=== PATIENT | female | born 1965 | race Caucasian/White ===

== ENCOUNTER 2021-04-01 01:58 | Emergency (ER) | payer BC ==
[2021-04-01] MEDS ORDERED: solu-MEDROL 125 MG, Sterile H2O 10 ml 2 ML IV ONE ×2 (02:08)
[2021-04-01] MEDS ORDERED: BENADRYL 50 MG/ML IV ONE (02:08)
[2021-04-01] MEDS ORDERED: Pepcid 20 MG VIAL IV ONE ×2 (02:08→02:28)
--- NOTE | 2021-04-01 02:18 | ERPHSYRPT ---
- History of Present Illness Time Seen by Provider: 04/01/21 02:00 Source: patient Exam Limitations: no limitations Physician History: Patient is a 56-year-old female presents to our ED with complaints of a pruritic rash. Patient states the rash awoke her from her sleep. Patient is currently on Bactrim for urinary tract infection. Patient started the Bactrim on 24 March. Patient states she has no known drug allergies. Patient describes her rash as itchy and burning. No associated shortness of breath. No intraoral lesions. Patient breathing comfortably. Symptoms are mild to moderate in intensity. No specific worsening or improving factors. Patient voices no other complaints or concerns at this time. Timing/Duration: today Severity: moderate Modifying Factors: Improves With: nothing Associated Symptoms: denies symptoms, No fever Allergies/Adverse Reactions: Sulfa (Sulfonamide Antibiotics) Allergy (Intermediate, Verified 04/01/21 02:08) Rash Home Medications: P-Ephed HCl/Acetaminophen/Cp [Allergy Sinus Gelcap] 1 ea PO DAILY 06/16/16 [History] Hx Tetanus, Diphtheria Vaccination/Date Given: Yes (unk) Hx Influenza Vaccination/Date Given: No Hx Pneumococcal Vaccination/Date Given: No - Review of Systems Constitutional: No Symptoms, No Fever, No Chills Eyes: No Symptoms Ears, Nose, & Throat: No Symptoms Respiratory: No Symptoms, No Cough, No Dyspnea Cardiac: No Symptoms, No Chest Pain, No Edema, No Syncope Abdominal/Gastrointestinal: No Symptoms, No Abdominal Pain, No Nausea, No Vomiting, No Diarrhea Genitourinary Symptoms: No Symptoms, No Dysuria Musculoskeletal: No Symptoms, No Back Pain, No Neck Pain Skin: No Symptoms, No Rash Neurological: No Symptoms, No Dizziness, No Focal Weakness, No Sensory Changes Psychological: No Symptoms Endocrine: No Symptoms Hematologic/Lymphatic: No Symptoms Immunological/Allergic: No Symptoms All Other Systems: Reviewed and Negative - Past Medical History Pertinent Past Medical History: Yes Neurological History: No Pertinent History ENT History: No Pertinent History Cardiac History: Hypertension Respiratory History: No Pertinent History Endocrine Medical History: No Pertinent History Musculoskeletal History: No Pertinent History GI Medical History: No Pertinent History History: No Pertinent History Psycho-Social History: Anxiety Female Reproductive Disorders: No Pertinent History - Past Surgical History Past Surgical History: Yes Neuro Surgical History: No Pertinent History Cardiac: No Pertinent History Respiratory: No Pertinent History Gastrointestinal: No Pertinent History Genitourinary: No Pertinent History Musculoskeletal: No Pertinent History Female Surgical History: Tubal Ligation - Social History Smoking Status: Never smoker Exposure to second hand smoke: Yes Drug Use: none Patient Lives Alone: No - Nursing Vital Signs Nursing Vital Signs: Initial Vital Signs Temperature 97.9 F 04/01/21 01:59 Pulse Rate 89 04/01/21 01:59 Respiratory Rate 18 04/01/21 01:59 Blood Pressure 162/88 04/01/21 01:59 O2 Sat by Pulse Oximetry 99 04/01/21 01:59 Pain Scale Pain Intensity 0 - Physical Exam General Appearance: no apparent distress, alert Eye Exam: PERRL/EOMI, eyes nml inspection Ears, Nose, Throat Exam: normal ENT inspection, TMs normal, pharynx normal, moist mucous membranes Neck Exam: normal inspection, non-tender, supple, full range of motion Respiratory Exam: normal breath sounds, lungs clear, airway intact, No respiratory distress Cardiovascular Exam: regular rate/rhythm, normal heart sounds, normal peripheral pulses Gastrointestinal/Abdomen Exam: soft, normal bowel sounds, No tenderness, No mass, No guarding Back Exam: normal inspection, normal range of motion, No CVA tenderness, No vertebral tenderness Extremity Exam: normal inspection, normal range of motion, pelvis stable Neurologic Exam: alert, oriented x 3, cooperative, normal mood/affect, nml cerebellar function, nml station & gait, sensation nml, No motor deficits Skin Exam: normal color, warm, dry, rash Lymphatic Exam: No adenopathy SpO2 Interpretation: normal SpO2: 99 O2 Delivery: Room Air - Course Nursing assessment & vital signs reviewed: Yes Ordered Tests: Active Orders 24 hr Category Date Time Status IV Insertion STAT Care 04/01/21 02:08 Active Pulse Oximetry (ED) STAT Care 04/01/21 02:08 Active Medication Summary Discontinued Medications Generic Name Dose Route Start Last Admin Trade Name Freq PRN Reason Stop Dose Admin Methylprednisolone Sodium 0 mg 04/01/21 02:08 04/01/21 02:40 Succinate 125 mg/ Sterile IV 04/01/21 02:09 125 mg Water 2 ml STAT ONE Administration Diphenhydramine HCl 25 mg 04/01/21 02:08 04/01/21 02:41 Benadryl 50 Mg/Ml IV 04/01/21 02:09 25 mg STAT ONE Administration Diphenhydramine HCl Confirm 04/01/21 02:28 Benadryl 50 Mg/Ml Administered 04/01/21 02:29 Dose 50 mg .ROUTE .STK-MED ONE Famotidine 20 mg 04/01/21 02:08 04/01/21 02:41 Pepcid 20 Mg Vial IV 04/01/21 02:09 20 mg STAT ONE Administration Famotidine Confirm 04/01/21 02:28 Pepcid 20 Mg Vial Administered 04/01/21 02:29 Dose 20 mg IV .STK-MED ONE Methylprednisolone Sodium Succinate Confirm 04/01/21 02:29 Solu-Medrol Administered 04/01/21 02:30 Dose 125 mg .ROUTE .STK-MED ONE Sterile Water Confirm 04/01/21 02:29 Sterile H2o 10 Ml Administered 04/01/21 02:30 Dose 10 ml IJ .STK-MED ONE - Progress Progress: improved Progress Note: Patient reassessed. She feels much better. Rash is clearing up at this point. Patient feels she is ready for discharge. Vitals stable. Lungs clear. We updated patient's allergy profile to include sulfa/Bactrim. A prescription for EpiPen, steroid and Pepcid was forwarded to patient's pharmacy. Patient has Benadryl at home that she can take as needed for itching. Patient states she does not have a primary care doctor. Our on-call doctor today is Dr. Hicks. Patient referred to for a reevaluation. Patient agrees to follow-up within 48 hours for reevaluation. If symptoms recur or worsen patient agrees to return to our ED. Portions of this note were created with voice recognition technology. There may be grammatical, spelling, punctuation or sound alike errors 04/01/21 03:29 Counseled pt/family regarding: diagnosis, need for follow-up - Departure Departure Disposition: Home Clinical Impression: Allergic reaction caused by a drug, Pruritic rash Condition: Stable Critical Care Time: No Referrals: DOCTOR,NO FAMILY [Primary Care Provider] - WOO HICKS MD [ACTIVE STAFF] - Additional Instructions: Discharge/Care Plan DOMNABIL PATEL was seen on 04/01/21 in the Emergency Room. The patient was counseled regarding Diagnosis,Lab results, Imaging studies, need for follow up and when to return to the Emergency Room. Prescriptions given: Discharge Note I have spoken with the patient and/or caregivers. I have explained the patient's condition, diagnosis and treatment plan based on the information available to me at this time. I have answered the patient's and/or caregiver's questions and addressed any concerns. The patient and/or caregivers have as good understanding of the patient's diagnosis, condition and treatment plan as can be expected at this point. The vital signs have been stable. The patient's condition is stable and appropriate for discharge from the emergency department. The patient will pursue further outpatient evaluation with the primary care physician or other designated or consulting physician as outlined in the discharge instructions. The patient and/or caregivers are agreeable to this plan of care and follow-up instructions have been explained in detail. The patient and/or caregivers have received these instruction. The patient/and or caregivers are aware that any significant change in condition or worsening of symptoms should prompt an immediate return to this or the closest emergency department or call 911. Prescriptions: Prednisone 10 mg [Deltasone 10 mg] 40 mg PO DAILY 3 Days #12 tablet Epinephrine [Epipen] 0.3 mg IM DAILY 1 Days #2 dose Famotidine 20 mg [Pepcid 20 MG] 20 mg PO BID 7 Days #14 tablet
[2021-04-01] MEDS ORDERED: BENADRYL 50 MG/ML ONE (02:28)
[2021-04-01] MEDS ORDERED: solu-MEDROL ONE (02:29)
[2021-04-01] MEDS ORDERED: Sterile H2O 10 ml IJ ONE (02:29)
[2021-04-01 04:10] VITALS: BP 146/72; PULSE 88; O2SAT 98
== END 2021-04-01 04:10 | disposition home or self-care (01) ==
LOC: ED 01:58
DX: L29.8 Other pruritus (principal); T36.8X5A Adverse effect of other systemic antibiotics, initial encounter
CPT/HCPCS: 36000; 94760; 96374; 96375; 99284; J1200; J2930

== ENCOUNTER 2021-04-23 14:00 | Emergency (ER) | payer BC ==
--- NOTE | 2021-04-23 14:10 | ERPHSYRPT ---
- History of Present Illness Time Seen by Provider: 04/23/21 14:10 Source: patient Exam Limitations: no limitations Physician History: This is a 56-year-old white female who has a history of hypertension anxiety and seasonal allergies and is only taking loratadine and a multivitamin and presents with 1 month history of weakness and decreased appetite. Patient states she has to force herself to eat or drink. Patient does not have a primary care physician. Patient denies chest pain. She has no abdominal pain. She has no shortness of breath. She denies fevers or chills. She does not have a cough. She has not been passing blood either vaginally, via urine, or bloody stools. It is unclear to her why she feels weak and unable to eat or drink normally. She denies any new medications. She has never had anything like this in the past. Timing/Duration: week(s) (4) Severity: mild Associated Symptoms: loss of appetite, malaise, weakness, No nausea, No vomiting, No abdominal pain, No shortness of breath, No cough, No chest pain, No fever Allergies/Adverse Reactions: Sulfa (Sulfonamide Antibiotics) Allergy (Intermediate, Verified 04/01/21 02:08) Rash Home Medications: Loratadine 10 mg [Claritin 10 mg] 10 mg PO DAILY 04/23/21 [History] Multivitamin 1 each PO DAILY 04/23/21 [History] Hx Tetanus, Diphtheria Vaccination/Date Given: Yes (unk) Hx Influenza Vaccination/Date Given: No Hx Pneumococcal Vaccination/Date Given: No Travel Risk - International Travel Have you traveled outside of the country in past 3 weeks: No - Coronavirus Screening Are you exhibiting any of the following symptoms?: No Close contact with a COVID-19 positive Pt in past 14-21 Days: No - Vaccine Status Have you recieved a Covid-19 vaccination: Yes 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: [facility] - Vaccination Dates Date of 2cond Vaccination (if applicable): 11/18/20 - Review of Systems Constitutional: Weakness Eyes: No Symptoms Ears, Nose, & Throat: No Symptoms Respiratory: No Symptoms Cardiac: No Symptoms Abdominal/Gastrointestinal: Appetite Changes, No Abdominal Pain, No Nausea, No Vomiting, No Diarrhea Genitourinary Symptoms: No Symptoms Musculoskeletal: No Symptoms Skin: No Symptoms Neurological: No Symptoms Psychological: No Symptoms Endocrine: No Symptoms Hematologic/Lymphatic: No Symptoms Immunological/Allergic: No Symptoms All Other Systems: Reviewed and Negative - Past Medical History Pertinent Past Medical History: Yes Neurological History: No Pertinent History ENT History: No Pertinent History Cardiac History: Hypertension Respiratory History: No Pertinent History Endocrine Medical History: No Pertinent History Musculoskeletal History: No Pertinent History GI Medical History: No Pertinent History History: No Pertinent History Psycho-Social History: Anxiety Female Reproductive Disorders: No Pertinent History - Past Surgical History Past Surgical History: Yes Neuro Surgical History: No Pertinent History Cardiac: No Pertinent History Respiratory: No Pertinent History Gastrointestinal: No Pertinent History Genitourinary: No Pertinent History Musculoskeletal: No Pertinent History Female Surgical History: Tubal Ligation - Social History Smoking Status: Never smoker Exposure to second hand smoke: Yes Drug Use: none Patient Lives Alone: No - Nursing Vital Signs Nursing Vital Signs: Initial Vital Signs Temperature 98.9 F 04/23/21 14:09 Pulse Rate 101 H 04/23/21 14:09 Respiratory Rate 18 04/23/21 14:09 Blood Pressure 144/66 04/23/21 14:09 O2 Sat by Pulse Oximetry 98 04/23/21 14:09 Pain Scale Pain Intensity 3 - Physical Exam General Appearance: no apparent distress, alert, anxiety Eye Exam: PERRL/EOMI, eyes nml inspection Ears, Nose, Throat Exam: normal ENT inspection, moist mucous membranes Neck Exam: normal inspection, non-tender, supple, full range of motion Respiratory Exam: normal breath sounds, lungs clear, airway intact, No chest tenderness, No respiratory distress Cardiovascular Exam: regular rate/rhythm, normal heart sounds, normal peripheral pulses Gastrointestinal/Abdomen Exam: soft, normal bowel sounds, No tenderness Pelvic Exam: not done Rectal Exam: not done Back Exam: normal inspection, normal range of motion, No CVA tenderness, No vertebral tenderness Extremity Exam: normal inspection, normal range of motion, pelvis stable Neurologic Exam: alert, oriented x 3, cooperative, 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 II-XII 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 tested, normal mood/affect, nml cerebellar function, nml station & gait, sensation nml Skin Exam: normal color, warm, dry Lymphatic Exam: No adenopathy SpO2 Interpretation: normal O2 Delivery: Room Air - Course Nursing assessment & vital signs reviewed: Yes Ordered Tests: Active Orders 24 hr Category Date Time Status Clean Catch Urine Specimen STAT Care 04/23/21 14:30 Active EKG-ER Only STAT Care 04/23/21 14:30 Active IV Insertion STAT Care 04/23/21 14:30 Active AMYLASE Stat Lab 04/23/21 14:27 Completed CBC W DIFF Stat Lab 04/23/21 14:27 Completed CMP Stat Lab 04/23/21 14:27 Completed CULTURE,URINE Stat Lab 04/23/21 15:11 Received LIPASE Stat Lab 04/23/21 14:27 Completed Lactic Acid Stat Lab 04/23/21 14:30 Completed MAGNESIUM Stat Lab 04/23/21 14:27 Completed T4 (Thyroxine) Stat Lab 04/23/21 14:27 Completed TROPONIN Q3H Lab 04/23/21 14:27 Completed TROPONIN Q3H Lab 04/23/21 17:45 Ordered TROPONIN Q3H Lab 04/23/21 20:45 Ordered TROPONIN Q3H Lab 04/23/21 23:45 Ordered TROPONIN Q3H Lab 04/24/21 02:45 Ordered TSH, 3RD Generation Stat Lab 04/23/21 14:27 Completed UA W/RFX UR CULTURE Stat Lab 04/23/21 15:11 Completed Urine Triage Profile Stat Lab 04/23/21 15:11 Completed Medication Summary Discontinued Medications Generic Name Dose Route Start Last Admin Trade Name Freq PRN Reason Stop Dose Admin Sodium Chloride 1,000 mls @ 999 mls/hr 04/23/21 14:30 04/23/21 15:52 Sodium Chloride 0.9% 1000 Ml IV 04/23/21 15:30 Infused .Q1H1M STA Infusion Sodium Chloride Confirm 04/23/21 14:34 Sodium Chloride 0.9% 1000 Ml Administered 04/23/21 14:35 Dose 1,000 mls @ ud .ROUTE .STK-MED ONE Ceftriaxone Sodium/Dextrose 1 g in 50 mls @ 100 mls/hr 04/23/21 15:38 04/23/21 15:48 Rocephin 1 Gm-D5w 50 Ml Bag IV 04/23/21 16:07 100 mls/hr STAT STA 100 mls/hr Administration Ceftriaxone Sodium/Dextrose Confirm 04/23/21 15:45 Rocephin 1 Gm-D5w 50 Ml Bag Administered 04/23/21 15:46 Dose 1 g in 50 mls @ ud IV .STK-MED ONE Lab/Rad Data: Laboratory Result Diagrams 04/23/21 14:27 04/23/21 14:27 Laboratory Results 04/23/21 04/23/21 04/23/21 Range/Units 15:11 15:11 14:30 WBC (4.0-10.5) K/mm3 RBC (4.1-5.4) M/mm3 Hgb (12.0-16.0) gm/dl Hct (35-47) % MCV (78-100) fl MCH (26-32) pg MCHC (32-36) g/dl RDW (11.5-14.0) % Plt Count (150-450) K/mm3 MPV (7.5-11.0) fl Gran % (36.0-66.0) % Eos # (Auto) (0-0.5) Absolute Lymphs (auto) (1.0-4.6) Absolute Monos (auto) (0.0-1.3) Lymphocytes % (24.0-44.0) % Monocytes % (0.0-12.0) % Eosinophils % (0.00-5.0) % Basophils % (0.0-0.4) % Absolute Granulocytes (1.4-6.9) Basophils # (0-0.4) Sodium (137-145) mmol/L Potassium (3.5-5.1) mmol/L Chloride (98-107) mmol/L Carbon Dioxide (22-30) mmol/L Anion Gap (5-15) MEQ/L BUN (7-17) mg/dL Creatinine (0.52-1.04) mg/dL Estimated GFR ML/MIN Glucose (74-106) mg/dL Lactic Acid 1.5 (0.4-2.0) Calcium (8.4-10.2) mg/dL Magnesium (1.6-2.3) mg/dL Total Bilirubin (0.2-1.3) mg/dL AST (14-36) U/L ALT (0-35) U/L Alkaline Phosphatase (38-126) U/L Troponin I (0.000-0.034) ng/mL Serum Total Protein (6.3-8.2) g/dL Albumin (3.5-5.0) g/dL Amylase (30-110) U/L Lipase (23-300) U/L Thyroxine (T4) (5.53-10.96) ug/dL TSH 3rd Generation (0.47-4.68) mIU/L Urine Color YELLOW (YELLOW) Urine Appearance TURBID (CLEAR) Urine pH 6.0 (5-6) Ur Specific [place] 1.017 (1.005-1.025) Urine Protein 100 (Negative) Urine Ketones NEGATIVE (NEGATIVE) Urine Blood SMALL (0-5) Ricardo/ul Urine Nitrite POSITIVE (NEGATIVE) Urine Bilirubin NEGATIVE (NEGATIVE) Urine Urobilinogen 2 (0-1) mg/dL Ur Leukocyte Esterase MODERATE (NEGATIVE) Urine WBC (Auto) >100 (0-5) /HPF Urine RBC (Auto) 16-25 (0-2) /HPF U Epithel Cells (Auto) RARE (FEW) /HPF Urine Bacteria (Auto) MANY (NEGATIVE) /HPF Urine Mucus (Auto) MANY (NEGATIVE) /HPF Urine Culture Reflexed YES (NO) Urine Glucose NEGATIVE (NEGATIVE) mg/dL Urine Opiates Level NEGATIVE (NEGATIVE) Ur Methadone NEGATIVE (NEGATIVE) Urine Barbiturates NEGATIVE (NEGATIVE) Ur Phencyclidine (PCP) NEGATIVE (NEGATIVE) Urine Amphetamine NEGATIVE (NEGATIVE) U Benzodiazepine Level NEGATIVE (NEGATIVE) Urine Cocaine NEGATIVE (NEGATIVE) Urine Marijuana (THC) NEGATIVE (NEGATIVE) 04/23/21 04/23/21 04/23/21 Range/Units 14:27 14:27 14:27 WBC 11.1 H (4.0-10.5) K/mm3 RBC 4.36 (4.1-5.4) M/mm3 Hgb 13.1 (12.0-16.0) gm/dl Hct 39.0 (35-47) % MCV 89.4 (78-100) fl MCH 30.0 (26-32) pg MCHC 33.6 (32-36) g/dl RDW 13.1 (11.5-14.0) % Plt Count 178 (150-450) K/mm3 MPV 9.9 (7.5-11.0) fl Gran % 72.8 H (36.0-66.0) % Eos # (Auto) 0.03 (0-0.5) Absolute Lymphs (auto) 1.66 (1.0-4.6) Absolute Monos (auto) 1.33 H (0.0-1.3) Lymphocytes % 14.9 L (24.0-44.0) % Monocytes % 11.9 (0.0-12.0) % Eosinophils % 0.3 (0.00-5.0) % Basophils % 0.1 (0.0-0.4) % Absolute Granulocytes 8.11 H (1.4-6.9) Basophils # 0.01 (0-0.4) Sodium 134 L (137-145) mmol/L Potassium 3.5 (3.5-5.1) mmol/L Chloride 100 (98-107) mmol/L Carbon Dioxide 25 (22-30) mmol/L Anion Gap 13.0 (5-15) MEQ/L BUN 17 (7-17) mg/dL Creatinine 0.85 (0.52-1.04) mg/dL Estimated GFR > 60.0 ML/MIN Glucose 162 H (74-106) mg/dL Lactic Acid (0.4-2.0) Calcium 9.0 (8.4-10.2) mg/dL Magnesium 2.0 (1.6-2.3) mg/dL Total Bilirubin 1.40 H (0.2-1.3) mg/dL AST 20 (14-36) U/L ALT 16 (0-35) U/L Alkaline Phosphatase 94 (38-126) U/L Troponin I < 0.012 (0.000-0.034) ng/mL Serum Total Protein 7.1 (6.3-8.2) g/dL Albumin 4.0 (3.5-5.0) g/dL Amylase 46 (30-110) U/L Lipase 36 (23-300) U/L Thyroxine (T4) 7.57 (5.53-10.96) ug/dL TSH 3rd Generation 0.863 (0.47-4.68) mIU/L Urine Color (YELLOW) Urine Appearance (CLEAR) Urine pH (5-6) Ur Specific [place] (1.005-1.025) Urine Protein (Negative) Urine Ketones (NEGATIVE) Urine Blood (0-5) Ricardo/ul Urine Nitrite (NEGATIVE) Urine Bilirubin (NEGATIVE) Urine Urobilinogen (0-1) mg/dL Ur Leukocyte Esterase (NEGATIVE) Urine WBC (Auto) (0-5) /HPF Urine RBC (Auto) (0-2) /HPF U Epithel Cells (Auto) (FEW) /HPF Urine Bacteria (Auto) (NEGATIVE) /HPF Urine Mucus (Auto) (NEGATIVE) /HPF Urine Culture Reflexed (NO) Urine Glucose (NEGATIVE) mg/dL Urine Opiates Level (NEGATIVE) Ur Methadone (NEGATIVE) Urine Barbiturates (NEGATIVE) Ur Phencyclidine (PCP) (NEGATIVE) Urine Amphetamine (NEGATIVE) U Benzodiazepine Level (NEGATIVE) Urine Cocaine (NEGATIVE) Urine Marijuana (THC) (NEGATIVE) - Departure Departure Disposition: Home Clinical Impression: UTI (urinary tract infection) Condition: Stable Critical Care Time: No Referrals: DOCTOR,NO FAMILY [Primary Care Provider] - Additional Instructions: Drink plenty of fluids. Take Tylenol or ibuprofen for any fevers or to control aches and pains. Follow-up with your primary care physician for further managem ent. Prescriptions: Ciprofloxacin [Cipro 500 MG] 500 mg PO BID #14 tablet
[2021-04-23] MEDS ORDERED: Sodium Chloride 0.9% 1000 ML 1,000 ML IV STA (14:30)
[2021-04-23] MEDS ORDERED: Sodium Chloride 0.9% 1000 ML 1,000 ML ONE (14:34)
[2021-04-23 15:19] LABS: Absolute Neutrophil Ct (ANC) 8.11 (1.4-6.9); BASOPHIL % 0.1 % (0.0-0.4); Basophil (Absolute #) 0.01 (0-0.4); Eosinophil % 0.3 % (0.00-5.0); Eosinophil (Absolute #) 0.03 (0-0.5); Hemoglobin 13.1 gm/dl (12.0-16.0); Lymphocyte (Absolute #) 1.66 (1.0-4.6); Lymphocytes % 14.9 % (24.0-44.0); Mean Cell Volume 89.4 fl (78-100); Mean Corpuscular Hgb Concent. 33.6 g/dl (32-36); Mean Platelet Volume 9.9 fl (7.5-11.0); Monocyte (Absolute #) 1.33 (0.0-1.3); Monocytes % 11.9 % (0.0-12.0); Neutrophil % 72.8 % (36.0-66.0); Platelet Count 178 K/mm3 (150-450); Red Blood Count 4.36 M/mm3 (4.1-5.4); Red Cell Distribution Width 13.1 % (11.5-14.0); White Blood Count 11.1 K/mm3 (4.0-10.5)
[2021-04-23 15:25] LABS: Appearance TURBID (CLEAR); Bacteria MANY /HPF (NEGATIVE); Bilirubin NEGATIVE (NEGATIVE); Blood SMALL Ery/ul (0-5); Epithelial Cells RARE /HPF (FEW); Glucose NEGATIVE (NEGATIVE); Ketones NEGATIVE (NEGATIVE); Leukocyte Esterase MODERATE (NEGATIVE); Mucus MANY /HPF (NEGATIVE); Nitrite POSITIVE (NEGATIVE); Protein,Urine Dip 100 (Negative); Specific Gravity 1.017 (1.005-1.025); Urobilinogen 2 mg/dL (0-1); WBC >100 /HPF (0-5)
[2021-04-23] MEDS ORDERED: ROCEPHIN 1 Gm-D5w 50 ml Bag** 1 G/50 ML IVPB IV STA (15:38)
[2021-04-23] MEDS ORDERED: ROCEPHIN 1 Gm-D5w 50 ml Bag** 1 G/50 ML IVPB IV ONE (15:45)
[2021-04-23 15:48] LABS: Amphetamine,Urine NEGATIVE (NEGATIVE); Barbiturate,Urine NEGATIVE (NEGATIVE); Benzodiazepine,Urine NEGATIVE (NEGATIVE); Cocaine,Urine NEGATIVE (NEGATIVE); Methadone,Urine NEGATIVE (NEGATIVE); Opiate,Urine NEGATIVE (NEGATIVE); PCP,Urine NEGATIVE (NEGATIVE); THC,Urine NEGATIVE (NEGATIVE)
[2021-04-23 16:00] LABS: ALKALINE PHOSPHATASE 94 U/L (38-126); AMYLASE 46 U/L (30-110); BLOOD UREA NITROGEN 17 mg/dL (7-17); CHLORIDE 100 mmol/L (98-107); Carbon Dioxide 25 mmol/L (22-30); Creatinine 1 0.85 mg/dL (0.52-1.04); EST GLOMERULAR FILTRATION RATE > 60.0 ML/MIN; Glucose 162 mg/dL (74-106); LIPASE 36 U/L (23-300); Potassium 3.5 mmol/L (3.5-5.1); SGOT/AST 20 U/L (14-36); SGPT/ALT 16 U/L (0-35); SODIUM 134 mmol/L (137-145); T4 (Thyroxine) 7.57 ug/dL (5.53-10.96); TSH, 3RD Generation 0.863 mIU/L (0.47-4.68); Total Protein 7.1 g/dL (6.3-8.2)
[2021-04-23 16:09] VITALS: BP 156/80; PULSE 96; O2SAT 99
== END 2021-04-23 16:36 | disposition home or self-care (01) ==
LOC: ED 14:00
DX: I10 Essential (primary) hypertension (principal)
CPT/HCPCS: 36000; 36415; 80053; 80307; 81001; 82150; 83605; 83690; 83735; 84436; 84443; 84484; 85025; 87077; 87086; 87186; 93005; 99284; J0696

== ENCOUNTER 2021-06-04 14:29 | Emergency (ER) | payer BC ==
[2021-06-04] MEDS ORDERED: Zofran 4 MG/2 ML VIAL IV ONE (14:41)
[2021-06-04] MEDS ORDERED: Sodium Chloride 0.9% 1000 ML 1,000 ML IV STA (14:41)
[2021-06-04] MEDS ORDERED: Zofran 4 MG/2 ML VIAL ONE (14:50)
[2021-06-04] MEDS ORDERED: Sodium Chloride 0.9% 1000 ML 1,000 ML ONE (14:50)
[2021-06-04 15:01] LABS: Absolute Neutrophil Ct (ANC) 14.22 (1.4-6.9); BASOPHIL % 0.1 % (0.0-0.4); Basophil (Absolute #) 0.02 (0-0.4); Eosinophil % 0.1 % (0.00-5.0); Eosinophil (Absolute #) 0.01 (0-0.5); Hematocrit 40.8 % (35-47); Hemoglobin 13.3 gm/dl (12.0-16.0); Lymphocyte (Absolute #) 1.37 (1.0-4.6); Lymphocytes % 8.1 % (24.0-44.0); Mean Cell Volume 88.7 fl (78-100); Mean Corpuscular Hemoglobin 28.9 pg (26-32); Mean Corpuscular Hgb Concent. 32.6 g/dl (32-36); Mean Platelet Volume 9.3 fl (7.5-11.0); Monocyte (Absolute #) 1.25 (0.0-1.3); Monocytes % 7.4 % (0.0-12.0); Neutrophil % 84.3 % (36.0-66.0); Platelet Count 255 K/mm3 (150-450); Red Cell Distribution Width 13.1 % (11.5-14.0); White Blood Count 16.9 K/mm3 (4.0-10.5)
[2021-06-04 15:09] LABS: Appearance CLOUDY (CLEAR); Bacteria FEW /HPF (NEGATIVE); Bilirubin NEGATIVE (NEGATIVE); Blood SMALL Ery/ul (0-5); Epithelial Cells RARE /HPF (FEW); Glucose NEGATIVE (NEGATIVE); Ketones NEGATIVE (NEGATIVE); Leukocyte Esterase LARGE (NEGATIVE); Mucus SLIGHT /HPF (NEGATIVE); Nitrite NEGATIVE (NEGATIVE); Protein,Urine Dip 100 (Negative); RBC 26-50 /HPF (0-2); Specific Gravity 1.023 (1.005-1.025); Urobilinogen NEGATIVE mg/dL (0-1); WBC >100 /HPF (0-5)
[2021-06-04 15:09] LABS: ALBUMIN 4.1 g/dL (3.5-5.0); ALKALINE PHOSPHATASE 89 U/L (38-126); ANION GAP 12.4 MEQ/L (5-15); BLOOD UREA NITROGEN 19 mg/dL (7-17); CHLORIDE 100 mmol/L (98-107); Calcium 9.1 mg/dL (8.4-10.2); Carbon Dioxide 26 mmol/L (22-30); Creatinine 1 0.87 mg/dL (0.52-1.04); EST GLOMERULAR FILTRATION RATE > 60.0 ML/MIN; Glucose 160 mg/dL (74-106); LIPASE 42 U/L (23-300); Potassium 4.1 mmol/L (3.5-5.1); SGOT/AST 20 U/L (14-36); SGPT/ALT 16 U/L (0-35); SODIUM 134 mmol/L (137-145); Total Protein 6.6 g/dL (6.3-8.2)
[2021-06-04] MEDS ORDERED: ROCEPHIN 1 Gm-D5w 50 ml Bag** 1 G/50 ML IVPB IV STA (15:22)
[2021-06-04] MEDS ORDERED: ROCEPHIN 1 Gm-D5w 50 ml Bag** 1 G/50 ML IVPB IV ONE (15:26)
--- NOTE | 2021-06-04 15:38 | ERPHSYRPT ---
- History of Present Illness Time Seen by Provider: 06/04/21 14:45 Source: patient Exam Limitations: no limitations Patient Subjective Stated Complaint: Pt states "I started to vomit just before midnight last night and I have been vomiting today." Triage Nursing Assessment: Pt presented alert and oriented X 3, skin wpd Pt ambulates with an upright steady gait, able to speak in clear full sentences pt in no apparent respiratory distress. Physician History: Patient is a 56-year-old female presents to our ED for evaluation of nausea and vomiting. Patient started vomiting last night at around midnight. Patient states she cannot hold anything down. No other complaints. No chest pain or shortness of breath. No trauma. No fever. No abdominal pain. No diarrhea. No rash. Patient symptoms are mild to moderate in intensity. No specific worsening or improving factors. Patient states he is otherwise healthy. She does not require medication treatment of any sort. 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 Patient voices no other complaints or concerns at this time. Timing/Duration: yesterday Severity: moderate Modifying Factors: Improves With: nothing Associated Symptoms: No shortness of breath, No diaphoresis, No cough, No chills, No chest pain, No fever, No headaches, No loss of appetite, No syncope, No weakness Allergies/Adverse Reactions: Sulfa (Sulfonamide Antibiotics) Allergy (Intermediate, Verified 04/01/21 02:08) Rash Home Medications: Loratadine 10 mg [Claritin 10 mg] 10 mg PO DAILY 04/23/21 [History] Multivitamin 1 each PO DAILY 04/23/21 [History] Hx Tetanus, Diphtheria Vaccination/Date Given: No Hx Influenza Vaccination/Date Given: No Hx Pneumococcal Vaccination/Date Given: No Immunizations Up to Date: Yes Travel Risk - International Travel Have you traveled outside of the country in past 3 weeks: No - Coronavirus Screening Are you exhibiting any of the following symptoms?: No Close contact with a COVID-19 positive Pt in past 14-21 Days: No - Vaccine Status Have you recieved a Covid-19 vaccination: Yes Director Business Development: Marco Vasco - Vaccination Dates Date of 2cond Vaccination (if applicable): 12/2020 - Review of Systems Constitutional: No Symptoms, No Fever, No Chills Eyes: No Symptoms Ears, Nose, & Throat: No Symptoms Respiratory: No Symptoms, No Cough, No Dyspnea Cardiac: No Symptoms, No Chest Pain, No Edema, No Syncope Abdominal/Gastrointestinal: No Symptoms, No Abdominal Pain, No Nausea, No Vomiting, No Diarrhea Genitourinary Symptoms: No Symptoms, No Dysuria Musculoskeletal: No Symptoms, No Back Pain, No Neck Pain Skin: No Symptoms, No Rash Neurological: No Symptoms, No Dizziness, No Focal Weakness, No Sensory Changes Psychological: No Symptoms Endocrine: No Symptoms Hematologic/Lymphatic: No Symptoms Immunological/Allergic: No Symptoms All Other Systems: Reviewed and Negative - Past Medical History Pertinent Past Medical History: Yes Neurological History: No Pertinent History ENT History: No Pertinent History Cardiac History: Hypertension Respiratory History: No Pertinent History Endocrine Medical History: No Pertinent History Musculoskeletal History: No Pertinent History GI Medical History: No Pertinent History History: No Pertinent History Psycho-Social History: Anxiety Female Reproductive Disorders: No Pertinent History - Past Surgical History Past Surgical History: Yes Neuro Surgical History: No Pertinent History Cardiac: No Pertinent History Respiratory: No Pertinent History Gastrointestinal: No Pertinent History Genitourinary: No Pertinent History Musculoskeletal: No Pertinent History Female Surgical History: Tubal Ligation - Social History Smoking Status: Never smoker Exposure to second hand smoke: Yes Drug Use: none Patient Lives Alone: No - Female History Hx Last Menstrual Period: no more Hx Now: No - Nursing Vital Signs Nursing Vital Signs: Initial Vital Signs Temperature 97.5 F 06/04/21 14:36 Pulse Rate 92 H 06/04/21 14:36 Respiratory Rate 20 06/04/21 14:36 Blood Pressure 195/89 06/04/21 14:36 O2 Sat by Pulse Oximetry 100 06/04/21 14:36 Pain Scale Pain Intensity 0 - Physical Exam General Appearance: no apparent distress, alert Eye Exam: PERRL/EOMI, eyes nml inspection Ears, Nose, Throat Exam: normal ENT inspection, TMs normal, pharynx normal, moist mucous membranes Neck Exam: normal inspection, non-tender, supple, full range of motion Respiratory Exam: normal breath sounds, lungs clear, airway intact, No respiratory distress Cardiovascular Exam: regular rate/rhythm, normal heart sounds, normal peripheral pulses Gastrointestinal/Abdomen Exam: soft, normal bowel sounds, other (No CVA tenderness.), No tenderness, No mass Back Exam: normal inspection, normal range of motion, No CVA tenderness, No vertebral tenderness Extremity Exam: normal inspection, normal range of motion, pelvis stable Neurologic Exam: alert, oriented x 3, cooperative, normal mood/affect, nml cerebellar function, nml station & gait, sensation nml, No motor deficits Skin Exam: normal color, warm, dry, No rash Lymphatic Exam: No adenopathy SpO2 Interpretation: normal SpO2: 100 O2 Delivery: Room Air - Course Nursing assessment & vital signs reviewed: Yes Ordered Tests: Active Orders 24 hr Category Date Time Status IV Insertion STAT Care 06/04/21 14:41 Active CBC W DIFF Stat Lab 06/04/21 14:50 Completed CMP Stat Lab 06/04/21 14:50 Completed CULTURE,URINE Stat Lab 06/04/21 14:52 Received LIPASE Stat Lab 06/04/21 14:50 Completed TROPONIN Q3H Lab 06/04/21 14:50 Received TROPONIN Q3H Lab 06/04/21 17:45 Ordered TROPONIN Q3H Lab 06/04/21 20:45 Ordered TROPONIN Q3H Lab 06/04/21 23:45 Ordered TROPONIN Q3H Lab 06/05/21 02:45 Ordered UA W/RFX UR CULTURE Stat Lab 06/04/21 14:52 Completed Medication Summary Generic Name Dose Route Start Last Admin Trade Name Freq PRN Reason Stop Dose Admin Ceftriaxone Sodium/Dextrose 1 g in 50 mls @ 100 mls/hr 06/04/21 15:22 06/04/21 15:26 Rocephin 1 Gm-D5w 50 Ml Bag IV 06/04/21 15:51 100 mls/hr STAT STA 100 mls/hr Administration Discontinued Medications Generic Name Dose Route Start Last Admin Trade Name Freq PRN Reason Stop Dose Admin Sodium Chloride 1,000 mls @ 999 mls/hr 06/04/21 14:41 06/04/21 14:52 Sodium Chloride 0.9% 1000 Ml IV 06/04/21 15:41 999 mls/hr .Q1H1M STA Administration Sodium Chloride Confirm 06/04/21 14:50 Sodium Chloride 0.9% 1000 Ml Administered 06/04/21 14:51 Dose 1,000 mls @ ud .ROUTE .STK-MED ONE Ceftriaxone Sodium/Dextrose Confirm 06/04/21 15:26 Rocephin 1 Gm-D5w 50 Ml Bag Administered 06/04/21 15:27 Dose 1 g in 50 mls @ ud IV .STK-MED ONE Ondansetron HCl 4 mg 06/04/21 14:41 06/04/21 14:51 Ondansetron Hcl 4 Mg/2 Ml Vial IV 06/04/21 14:42 4 mg STAT ONE Administration Ondansetron HCl Confirm 06/04/21 14:50 Ondansetron Hcl 4 Mg/2 Ml Vial Administered 06/04/21 14:51 Dose 4 mg .ROUTE .STK-MED ONE Lab/Rad Data: Laboratory Result Diagrams 06/04/21 14:50 06/04/21 14:50 Laboratory Results 06/04/21 06/04/21 06/04/21 Range/Units 14:52 14:50 14:50 WBC 16.9 H (4.0-10.5) K/mm3 RBC 4.60 (4.1-5.4) M/mm3 Hgb 13.3 (12.0-16.0) gm/dl Hct 40.8 (35-47) % MCV 88.7 (78-100) fl MCH 28.9 (26-32) pg MCHC 32.6 (32-36) g/dl RDW 13.1 (11.5-14.0) % Plt Count 255 (150-450) K/mm3 MPV 9.3 (7.5-11.0) fl Gran % 84.3 H (36.0-66.0) % Eos # (Auto) 0.01 (0-0.5) Absolute Lymphs (auto) 1.37 (1.0-4.6) Absolute Monos (auto) 1.25 (0.0-1.3) Lymphocytes % 8.1 L (24.0-44.0) % Monocytes % 7.4 (0.0-12.0) % Eosinophils % 0.1 (0.00-5.0) % Basophils % 0.1 (0.0-0.4) % Absolute Granulocytes 14.22 H (1.4-6.9) Basophils # 0.02 (0-0.4) Sodium 134 L (137-145) mmol/L Potassium 4.1 (3.5-5.1) mmol/L Chloride 100 (98-107) mmol/L Carbon Dioxide 26 (22-30) mmol/L Anion Gap 12.4 (5-15) MEQ/L BUN 19 H (7-17) mg/dL Creatinine 0.87 (0.52-1.04) mg/dL Estimated GFR > 60.0 ML/MIN Glucose 160 H (74-106) mg/dL Calcium 9.1 (8.4-10.2) mg/dL Total Bilirubin 1.30 (0.2-1.3) mg/dL AST 20 (14-36) U/L ALT 16 (0-35) U/L Alkaline Phosphatase 89 (38-126) U/L Serum Total Protein 6.6 (6.3-8.2) g/dL Albumin 4.1 (3.5-5.0) g/dL Lipase 42 (23-300) U/L Urine Color SARINA (YELLOW) Urine Appearance CLOUDY (CLEAR) Urine pH 7.0 (5-6) Ur Specific [place] 1.023 (1.005-1.025) Urine Protein 100 (Negative) Urine Ketones NEGATIVE (NEGATIVE) Urine Blood SMALL (0-5) Ricardo/ul Urine Nitrite NEGATIVE (NEGATIVE) Urine Bilirubin NEGATIVE (NEGATIVE) Urine Urobilinogen NEGATIVE (0-1) mg/dL Ur Leukocyte Esterase LARGE (NEGATIVE) Urine WBC (Auto) >100 (0-5) /HPF Urine RBC (Auto) 26-50 (0-2) /HPF U Epithel Cells (Auto) RARE (FEW) /HPF Urine Bacteria (Auto) FEW (NEGATIVE) /HPF Urine Mucus (Auto) SLIGHT (NEGATIVE) /HPF Urine Culture Reflexed YES (NO) Urine Glucose NEGATIVE (NEGATIVE) mg/dL - Progress Progress: improved Progress Note: Patient reassessed. She feels much better. Work-up reveals a UTI with a leukocytosis and mild hyponatremia. IV fluids infused. Patient received Zofran and ceftriaxone. Patient tolerated p.o. well. A prescription for Keflex and Zofran was forwarded to patient's pharmacy. Patient states he is ready for discharge. She voices no other complaints or concerns at this time. Patient agrees to follow-up with her primary care doctor within 48 hours for reevaluation. Portions of this note were created with voice recognition technology. There may be grammatical, spelling, punctuation or sound alike errors 06/04/21 15:48 Patient states she does not have a primary care doctor. Patient referred to Dr. Quiñones, our on-call physician. Patient will follow up with Dr. Quiñones within 48 hours for evaluation. 06/04/21 15:50 Counseled pt/family regarding: lab results, diagnosis, need for follow-up - Departure Departure Disposition: Home Clinical Impression: UTI (urinary tract infection), Hyponatremia, Nausea & vomiting, Leukocytosis Condition: Stable Critical Care Time: No Referrals: DOCTOR,NO FAMILY [Primary Care Provider] - Follow up/PCP as directed HUGO QUIÑONES MD [ACTIVE STAFF] - Follow up/PCP as directed Additional Instructions: Discharge/Care Plan NABIL FERNANDES was seen on 06/04/21 in the Emergency Room. The patient was counseled regarding Diagnosis,Lab results, Imaging studies, need for follow up and when to return to the Emergency Room. Prescriptions given: Discharge Note I have spoken with the patient and/or caregivers. I have explained the patient's condition, diagnosis and treatment plan based on the information available to me at this time. I have answered the patient's and/or caregiver's questions and addressed any concerns. The patient and/or caregivers have as good understanding of the patient's diagnosis, condition and treatment plan as can be expected at this point. The vital signs have been stable. The patient's condition is stable and appropriate for discharge from the emergency department. The patient will pursue further outpatient evaluation with the primary care physician or other designated or consulting physician as outlined in the discharge instructions. The patient and/or caregivers are agreeable to this plan of care and follow-up instructions have been explained in detail. The patient and/or caregivers have received these instruction. The patient/and or caregivers are aware that any significant change in condition or worsening of symptoms should prompt an immediate return to this or the closest emergency department or call 911. Prescriptions: Ondansetron ODT 4 MG [Zofran Odt 4 mg] 4 mg PO Q6H PRN PRN #10 tablet PRN Reason: Vomiting Cephalexin Mh 500 mg [Keflex 500 mg] 500 mg PO QID 7 Days #28 cap
[2021-06-04 15:41] VITALS: BP 177/93; PULSE 90
[2021-06-04 15:47] VITALS: O2SAT 100
== END 2021-06-04 15:57 | disposition home or self-care (01) ==
LOC: ED 14:29
DX: N39.0 Urinary tract infection, site not specified (principal); E87.1 Hypo-osmolality and hyponatremia; R11.2 Nausea with vomiting, unspecified; D72.829 Elevated white blood cell count, unspecified
CPT/HCPCS: 36000; 36415; 80053; 81001; 83690; 84484; 85025; 87077; 87086; 87186; 96374; 99284; J0696; J2405

== ENCOUNTER 2021-11-08 13:49 | Observation (INO) | payer BC ==
[2021-11-08] MEDS ORDERED: Sodium Chloride 0.9% 1000 ML 1,000 ML IV STA (14:31)
[2021-11-08] MEDS ORDERED: Zofran 4 MG/2 ML VIAL IV ONE (14:31)
[2021-11-08 14:44] LABS: ALBUMIN 4.2 g/dL (3.5-5.0); ALKALINE PHOSPHATASE 102 U/L (38-126); ANION GAP 11.4 MEQ/L (5-15); BLOOD UREA NITROGEN 19 mg/dL (7-17); CHLORIDE 103 mmol/L (98-107); Carbon Dioxide 26 mmol/L (22-30); Creatinine 1 0.88 mg/dL (0.52-1.04); EST GLOMERULAR FILTRATION RATE > 60.0 ML/MIN; Glucose 158 mg/dL (74-106); SGOT/AST 25 U/L (14-36); SGPT/ALT 17 U/L (0-35); SODIUM 137 mmol/L (137-145)
[2021-11-08 14:49] LABS: Absolute Neutrophil Ct (ANC) 13.72 (1.4-6.9); Basophil (Absolute #) 0.01 (0-0.4); Eosinophil % 0.1 % (0.00-5.0); Eosinophil (Absolute #) 0.01 (0-0.5); Hematocrit 43.8 % (35-47); Hemoglobin 14.7 gm/dl (12.0-16.0); Lymphocyte (Absolute #) 1.46 (1.0-4.6); Lymphocytes % 8.9 % (24.0-44.0); Mean Cell Volume 89.9 fl (78-100); Mean Corpuscular Hemoglobin 30.2 pg (26-32); Mean Corpuscular Hgb Concent. 33.6 g/dl (32-36); Mean Platelet Volume 9.4 fl (7.5-11.0); Monocyte (Absolute #) 1.12 (0.0-1.3); Monocytes % 6.9 % (0.0-12.0); Platelet Count 235 K/mm3 (150-450); Red Blood Count 4.87 M/mm3 (4.1-5.4); Red Cell Distribution Width 13.5 % (11.5-14.0); White Blood Count 16.3 K/mm3 (4.0-10.5)
[2021-11-08] MEDS ORDERED: Sodium Chloride 0.9% 1000 ML 1,000 ML ONE (14:56)
[2021-11-08] MEDS ORDERED: TORAdol 30 mg Injection ONE (14:56)
[2021-11-08] MEDS ORDERED: TORAdol 30 mg Injection IV ONE (14:56)
[2021-11-08] MEDS ORDERED: Zofran 4 MG/2 ML VIAL ONE (14:56)
[2021-11-08 15:07] LABS: Bacteria MODERATE /HPF (NEGATIVE); Epithelial Cells FEW /HPF (FEW); Hyaline Casts 0-2 /LPF (0-2); Mucus SLIGHT /HPF (NEGATIVE); WBC >100 /HPF (0-5)
[2021-11-08 15:08] LABS: Appearance CLEAR (CLEAR); Bilirubin NEGATIVE (NEGATIVE); Dipstick done @ ? MAIN LAB; Glucose NEGATIVE (NEGATIVE); Ketones NEGATIVE (NEGATIVE); Nitrite NEGATIVE (NEGATIVE); Protein,Urine Dip 30 (Negative); RBC TRACE-LYSED Ery/ul (0-5); Specific Gravity 1.025 (1.005-1.025); Urobilinogen 0.2 mg/dL (0-1)
[2021-11-08 15:09] LABS: Urine Cultured Indicated? YES
--- NOTE | 2021-11-08 15:24 | ERPHSYRPT ---
- History of Present Illness Source: patient Exam Limitations: other (Poor historian) Patient Subjective Stated Complaint: Back pain Triage Nursing Assessment: Patient ambulated back to ED and transferred self to bed. Patient A+O X3. Patient's skin flushed, warm and dry. Patient complains of lower left back pain that radiates into mid back 03/13. Patient states the pain s tarted this am around 0400. Patient complains of N/V. Patient states she gets frequent UTI's and feel like this is one. Physician History: 56 yo wf w lumbar pain/N/V/myalgias beginning at 4:00AM. Pt denies hematemesis/diarrhea/cough/coryza/dysuria/hematuria. She has mild abdominal pain and fever is denied. Timing/Duration: today (4AM) Quality: aching Severity of Pain-Max: moderate Severity of Pain-Current: moderate Associated Symptoms: chills, nausea, vomiting, weakness, lower back pain, No fever, No sweating, No urinary incontinence, No loss of bowel control, No constipation, No problems urinating, No light-headedness, No dizziness, No num bness in legs/feet, No sensory/motor loss, No tingling in legs/feet, No muscle spasms Previous symptoms: same symptoms as today (w UTI) Allergies/Adverse Reactions: Sulfa (Sulfonamide Antibiotics) Allergy (Intermediate, Verified 11/08/21 13:57) Rash lisinopril Allergy (Verified 11/08/21 16:56) Home Medications: Atorvastatin Calcium [Lipitor] 10 mg PO HS 11/08/21 [History] Hx Tetanus, Diphtheria Vaccination/Date Given: No Hx Influenza Vaccination/Date Given: Yes Hx Pneumococcal Vaccination/Date Given: No Immunizations Up to Date: Yes Travel Risk - International Travel Have you traveled outside of the country in past 3 weeks: No - Coronavirus Screening Are you exhibiting any of the following symptoms?: No Close contact with a COVID-19 positive Pt in past 14-21 Days: No - Vaccine Status Have you recieved a Covid-19 vaccination: Yes 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[employer] - Vaccination Dates Date of 2cond Vaccination (if applicable): 12/2020 - Review of Systems Constitutional: No Symptoms, Chills, Fatigue Eyes: No Symptoms Ears, Nose, & Throat: No Symptoms Respiratory: No Symptoms Cardiac: No Symptoms Abdominal/Gastrointestinal: No Symptoms, Abdominal Pain, Nausea, Vomiting Genitourinary Symptoms: No Symptoms Musculoskeletal: No Symptoms, Back Pain Skin: No Symptoms Neurological: No Symptoms Psychological: No Symptoms Endocrine: No Symptoms Hematologic/Lymphatic: No Symptoms Immunological/Allergic: No Symptoms - Past Medical History Pertinent Past Medical History: Yes Neurological History: No Pertinent History ENT History: No Pertinent History Cardiac History: Hypertension Respiratory History: No Pertinent History Endocrine Medical History: No Pertinent History Musculoskeletal History: No Pertinent History GI Medical History: No Pertinent History History: No Pertinent History Psycho-Social History: Anxiety Female Reproductive Disorders: No Pertinent History Other Medical History: frequent UTIs - Past Surgical History Past Surgical History: Yes Neuro Surgical History: No Pertinent History Cardiac: No Pertinent History Respiratory: No Pertinent History Gastrointestinal: No Pertinent History Genitourinary: No Pertinent History Musculoskeletal: No Pertinent History Female Surgical History: Tubal Ligation - Social History Smoking Status: Never smoker Exposure to second hand smoke: Yes Drug Use: none Patient Lives Alone: No Significant Family History: no pertinent family hx - Nursing Vital Signs Nursing Vital Signs: Initial Vital Signs Temperature 99.4 F 11/08/21 14:01 Pulse Rate 76 11/08/21 14:01 Respiratory Rate 18 11/08/21 14:01 Blood Pressure 171/82 11/08/21 14:01 O2 Sat by Pulse Oximetry 100 11/08/21 14:01 Pain Scale Pain Intensity 3 Hypertensive - Physical Exam General Appearance: no apparent distress Eye Exam: PERRL/EOMI, eyes nml inspection Ears, Nose, Throat Exam: normal ENT inspection, TMs normal, pharynx normal, moist mucous membranes Neck Exam: normal inspection, non-tender, supple, full range of motion, No meningismus, No mass, No Brudzinski, No Kernig's, No carotid bruit Respiratory Exam: normal breath sounds, lungs clear, airway intact Cardiovascular Exam: regular rate/rhythm, normal heart sounds, normal peripheral pulses, capillary refill <2 sec, No murmur Gastrointestinal Exam: soft, normal bowel sounds, No tenderness Back Exam: CVA tenderness (Mild B) Extremity Exam: normal inspection, normal range of motion Peripheral Pulses: carotid (R): 2+, carotid (L): 2+ Neurologic Exam: alert, oriented x 3, cooperative, 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 end mechanic II-XII nml as tested, normal mood/affect, nml cerebellar function, nml station & gait, sensation nml Skin Exam: normal color, warm, dry, No rash Lymphatic Exam: No adenopathy SpO2 Interpretation: normal SpO2: 100 O2 Delivery: Room Air Ordered Tests: Active Orders 24 hr Category Date Time Status IV Insertion STAT Care 11/08/21 15:06 Completed BLOOD CULTURE Stat Lab 11/08/21 16:30 Received CBC W DIFF AM.LAB Lab 11/09/21 04:00 Ordered CBC W DIFF Stat Lab 11/08/21 14:15 Completed CMP AM.LAB Lab 11/09/21 04:00 Ordered CMP Stat Lab 11/08/21 14:15 Completed CULTURE,URINE Stat Lab 11/08/21 14:55 Received Lactic Acid Stat Lab 11/08/21 14:31 Completed TROPONIN Q3H Lab 11/08/21 14:15 Completed TROPONIN Q3H Lab 11/08/21 17:54 Received TROPONIN Q3H Lab 11/08/21 20:45 Ordered TROPONIN Q3H Lab 11/08/21 23:45 Ordered TROPONIN Q3H Lab 11/09/21 02:45 Ordered UA W/RFX CULTURE Stat Lab 11/08/21 14:55 Completed Transfer Order Routine Transfer 11/08/21 Completed Medication Summary Generic Name Dose Route Start Last Admin Trade Name Freq PRN Reason Stop Dose Admin Sodium Chloride 1,000 mls @ 100 mls/hr 11/08/21 16:45 Sodium Chloride 0.9% 1000 Ml IV 12/08/21 16:44 .Q10H SUKUMAR Ceftriaxone Sodium/Dextrose 1 g in 50 mls @ 100 mls/hr 11/09/21 10:00 Rocephin 1 Gm-D5w 50 Ml Bag IV 11/12/21 09:59 Q24H10 SUKUMAR Ibuprofen 600 mg 11/08/21 17:34 Ibuprofen 600 Mg Tablet PO 12/08/21 17:33 Q6H PRN MODERATE PAIN Ondansetron HCl 4 mg 11/08/21 16:34 Ondansetron Hcl 4 Mg/2 Ml Vial IV 12/08/21 16:33 Q6H PRN PRN NAUSEA/VOMITING Simvastatin 10 mg 11/08/21 22:00 Simvastatin 10 Mg Tablet PO 12/08/21 21:59 HS SUKUMAR Discontinued Medications Generic Name Dose Route Start Last Admin Trade Name Freq PRN Reason Stop Dose Admin Sodium Chloride 1,000 mls @ 999 mls/hr 11/08/21 14:31 11/08/21 16:02 Sodium Chloride 0.9% 1000 Ml IV 11/08/21 15:31 Infused .Q1H1M STA Infusion Sodium Chloride Confirm 11/08/21 14:56 Sodium Chloride 0.9% 1000 Ml Administered 11/08/21 14:57 Dose 1,000 mls @ ud .ROUTE .STK-MED ONE Ceftriaxone Sodium/Dextrose 1 g in 50 mls @ 100 mls/hr 11/08/21 16:31 11/08/21 16:37 Rocephin 1 Gm-D5w 50 Ml Bag IV 11/08/21 17:00 100 ml/hr STAT STA 100 mls/hr Administration Ceftriaxone Sodium/Dextrose Confirm 11/08/21 16:34 Rocephin 1 Gm-D5w 50 Ml Bag Administered 11/08/21 16:35 Dose 1 g in 50 mls @ ud IV .STK-MED ONE Ketorolac Tromethamine 15 mg 11/08/21 14:56 11/08/21 15:01 Ketorolac Tromethamine 30 Mg/Ml Inj IV 11/08/21 14:57 15 mg STAT ONE Administration Ketorolac Tromethamine Confirm 11/08/21 14:56 Ketorolac Tromethamine 30 Mg/Ml Inj Administered 11/08/21 14:57 Dose 30 mg .ROUTE .STK-MED ONE Ondansetron HCl 4 mg 11/08/21 14:31 11/08/21 15:00 Ondansetron Hcl 4 Mg/2 Ml Vial IV 11/08/21 14:32 4 mg STAT ONE Administration Ondansetron HCl Confirm 11/08/21 14:56 Ondansetron Hcl 4 Mg/2 Ml Vial Administered 11/08/21 14:57 Dose 4 mg .ROUTE .STK-MED ONE Lab/Rad Data: Laboratory Result Diagrams 11/08/21 14:15 11/08/21 14:15 Laboratory Results 11/08/21 11/08/21 11/08/21 Range/Units 15:23 14:55 14:31 WBC (4.0-10.5) K/mm3 RBC (4.1-5.4) M/mm3 Hgb (12.0-16.0) gm/dl Hct (35-47) % MCV (78-100) fl MCH (26-32) pg MCHC (32-36) g/dl RDW (11.5-14.0) % Plt Count (150-450) K/mm3 MPV (7.5-11.0) fl Gran % (36.0-66.0) % Eos # (Auto) (0-0.5) Absolute Lymphs (auto) (1.0-4.6) Absolute Monos (auto) (0.0-1.3) Lymphocytes % (24.0-44.0) % Monocytes % (0.0-12.0) % Eosinophils % (0.00-5.0) % Basophils % (0.0-0.4) % Absolute Granulocytes (1.4-6.9) Basophils # (0-0.4) Sodium (137-145) mmol/L Potassium (3.5-5.1) mmol/L Chloride (98-107) mmol/L Carbon Dioxide (22-30) mmol/L Anion Gap (5-15) MEQ/L BUN (7-17) mg/dL Creatinine (0.52-1.04) mg/dL Estimated GFR ML/MIN Glucose (74-106) mg/dL Lactic Acid 1.6 (0.4-2.0) Calcium (8.4-10.2) mg/dL Total Bilirubin (0.2-1.3) mg/dL AST (14-36) U/L ALT (0-35) U/L Alkaline Phosphatase (38-126) U/L Troponin I (0.000-0.034) ng/mL Serum Total Protein (6.3-8.2) g/dL Albumin (3.5-5.0) g/dL Urinalys Dipstick Clnc MAIN LAB Urine Color YELLOW (YELLOW) Urine Appearance CLEAR (CLEAR) Urine pH 7.0 (5-6) Ur Specific [place] 1.025 (1.005-1.025) POC Urine Protein Conf 30 (Negative) Urine Ketones NEGATIVE (NEGATIVE) Urine Nitrite NEGATIVE (NEGATIVE) Urine Bilirubin NEGATIVE (NEGATIVE) Urine Urobilinogen 0.2 (0-1) mg/dL Urine Leukocytes TRACE (NEGATIVE) Urine WBC (Auto) >100 (0-5) /HPF Urine RBC (Auto) 3-5 (0-2) /HPF U Hyaline Cast (Auto) 0-2 (0-2) /LPF U Epithel Cells (Auto) FEW (FEW) /HPF Urine Bacteria (Auto) MODERATE (NEGATIVE) /HPF Urine RBC TRACE-LYSED (0-5) Ricardo/ul Unidentified Crystals 2-5 (NEGATIVE) /HPF Urine Mucus (Auto) SLIGHT (NEGATIVE) /HPF Ur Culture Indicated? YES Urine Glucose NEGATIVE (NEGATIVE) mg/dL Influenza Type A Ag NEGATIVE (NEGATIVE) Influenza Type B Ag NEGATIVE (NEGATIVE) RSV (PCR) NEGATIVE (Negative) SARS-CoV-2 (PCR) NEGATIVE (NEGATIVE) 11/08/21 11/08/21 11/08/21 Range/Units 14:15 14:15 14:15 WBC 16.3 H (4.0-10.5) K/mm3 RBC 4.87 (4.1-5.4) M/mm3 Hgb 14.7 (12.0-16.0) gm/dl Hct 43.8 (35-47) % MCV 89.9 (78-100) fl MCH 30.2 (26-32) pg MCHC 33.6 (32-36) g/dl RDW 13.5 (11.5-14.0) % Plt Count 235 (150-450) K/mm3 MPV 9.4 (7.5-11.0) fl Gran % 84.0 H (36.0-66.0) % Eos # (Auto) 0.01 (0-0.5) Absolute Lymphs (auto) 1.46 (1.0-4.6) Absolute Monos (auto) 1.12 (0.0-1.3) Lymphocytes % 8.9 L (24.0-44.0) % Monocytes % 6.9 (0.0-12.0) % Eosinophils % 0.1 (0.00-5.0) % Basophils % 0.1 (0.0-0.4) % Absolute Granulocytes 13.72 H (1.4-6.9) Basophils # 0.01 (0-0.4) Sodium 137 (137-145) mmol/L Potassium 4.0 (3.5-5.1) mmol/L Chloride 103 (98-107) mmol/L Carbon Dioxide 26 (22-30) mmol/L Anion Gap 11.4 (5-15) MEQ/L BUN 19 H (7-17) mg/dL Creatinine 0.88 (0.52-1.04) mg/dL Estimated GFR > 60.0 ML/MIN Glucose 158 H (74-106) mg/dL Lactic Acid (0.4-2.0) Calcium 9.0 (8.4-10.2) mg/dL Total Bilirubin 0.90 (0.2-1.3) mg/dL AST 25 (14-36) U/L ALT 17 (0-35) U/L Alkaline Phosphatase 102 (38-126) U/L Troponin I < 0.012 (0.000-0.034) ng/mL Serum Total Protein 7.0 (6.3-8.2) g/dL Albumin 4.2 (3.5-5.0) g/dL Urinalys Dipstick Clnc Urine Color (YELLOW) Urine Appearance (CLEAR) Urine pH (5-6) Ur Specific [place] (1.005-1.025) POC Urine Protein Conf (Negative) Urine Ketones (NEGATIVE) Urine Nitrite (NEGATIVE) Urine Bilirubin (NEGATIVE) Urine Urobilinogen (0-1) mg/dL Urine Leukocytes (NEGATIVE) Urine WBC (Auto) (0-5) /HPF Urine RBC (Auto) (0-2) /HPF U Hyaline Cast (Auto) (0-2) /LPF U Epithel Cells (Auto) (FEW) /HPF Urine Bacteria (Auto) (NEGATIVE) /HPF Urine RBC (0-5) Ricardo/ul Unidentified Crystals (NEGATIVE) /HPF Urine Mucus (Auto) (NEGATIVE) /HPF Ur Culture Indicated? Urine Glucose (NEGATIVE) mg/dL Influenza Type A Ag (NEGATIVE) Influenza Type B Ag (NEGATIVE) RSV (PCR) (Negative) SARS-CoV-2 (PCR) (NEGATIVE) - Progress Progress: improved Progress Note: 11/08/21 16:32 1L NS bolus 11/08/21 16:32 15mg IV Toradol 4mg IV Zofran Obs per Dr. Carpenter 1gm IV Rocephin after blood cultures x2 11/08/21 16:36 Admitting orders entered Discussed with : Edilberto Counseled pt/family regarding: lab results, diagnosis, need for follow-up - Departure Departure Disposition: Observation Clinical Impression: UTI (urinary tract infection) Condition: Stable Critical Care Time: No
[2021-11-08 16:16] LABS: INFLUENZA A NEGATIVE (NEGATIVE); INFLUENZA B NEGATIVE (NEGATIVE); RESPIRATORY SYNCTIAL VIRUS NEGATIVE (Negative); SARS-CoV-2 Xpert Express NEGATIVE (NEGATIVE)
[2021-11-08] MEDS ORDERED: ROCEPHIN 1 Gm-D5w 50 ml Bag** 1 G/50 ML IVPB IV STA (16:31)
[2021-11-08] MEDS ORDERED: ROCEPHIN 1 Gm-D5w 50 ml Bag** 1 G/50 ML IVPB IV ONE (16:34)
[2021-11-08] MEDS: Zofran 4 MG/2 ML VIAL IV PRN (20:47)
[2021-11-08] MEDS: Sodium Chloride 0.9% 1000 ML 1,000 ML IV SCH (20:47)
[2021-11-08] MEDS: Zocor 10MG PO SCH (20:52)
[2021-11-09] MEDS: MOTRIN 600 MG PO PRN (00:18)
[2021-11-09 05:26] LABS: Absolute Neutrophil Ct (ANC) 12.21 (1.4-6.9); Basophil (Absolute #) 0.01 (0-0.4); Eosinophil % 0.2 % (0.00-5.0); Eosinophil (Absolute #) 0.03 (0-0.5); Hematocrit 38.6 % (35-47); Hemoglobin 12.8 gm/dl (12.0-16.0); Lymphocyte (Absolute #) 2.01 (1.0-4.6); Lymphocytes % 13.1 % (24.0-44.0); Mean Cell Volume 91.5 fl (78-100); Mean Corpuscular Hemoglobin 30.3 pg (26-32); Mean Corpuscular Hgb Concent. 33.2 g/dl (32-36); Mean Platelet Volume 9.3 fl (7.5-11.0); Monocyte (Absolute #) 1.03 (0.0-1.3); Monocytes % 6.7 % (0.0-12.0); Neutrophil % 79.9 % (36.0-66.0); Platelet Count 195 K/mm3 (150-450); Red Blood Count 4.22 M/mm3 (4.1-5.4); Red Cell Distribution Width 13.5 % (11.5-14.0); White Blood Count 15.3 K/mm3 (4.0-10.5)
[2021-11-09 05:41] LABS: ALBUMIN 3.4 g/dL (3.5-5.0); ALKALINE PHOSPHATASE 76 U/L (38-126); ANION GAP 10.4 MEQ/L (5-15); BLOOD UREA NITROGEN 18 mg/dL (7-17); CHLORIDE 103 mmol/L (98-107); Calcium 8.1 mg/dL (8.4-10.2); Carbon Dioxide 25 mmol/L (22-30); EST GLOMERULAR FILTRATION RATE > 60.0 ML/MIN; Glucose 134 mg/dL (74-106); Potassium 3.7 mmol/L (3.5-5.1); SGOT/AST 24 U/L (14-36); SGPT/ALT 14 U/L (0-35); SODIUM 135 mmol/L (137-145); Total Protein 5.9 g/dL (6.3-8.2)
[2021-11-09] MEDS ORDERED: Sodium Chloride 0.9% 1000 ML 1,000 ML ONE (06:39)
[2021-11-09] MEDS: Sodium Chloride 0.9% 1000 ML 1,000 ML IV SCH (06:42)
[2021-11-09] MEDS ORDERED: MOTRIN 600 MG PO PRN (07:15)
[2021-11-09] MEDS: ROCEPHIN 1 Gm-D5w 50 ml Bag** 1 G/50 ML IVPB IV SCH (10:06)
[2021-11-09] MEDS ORDERED: Ativan 0.5 MG PO PRN (13:31)
[2021-11-09] MEDS: Zofran 4 MG/2 ML VIAL IV PRN (13:42)
--- NOTE | 2021-11-09 15:54 | PCM.HP ---
History of Present Illness - Chief Complaint Chief Complaint: ACUTE PYELONEPHRITIS History of Present Illness: is a 56 year old female with Hx HTN and HLD who presented to ER with back pain,nausea, vomiting and malaise and was dg UTI. WBC 16,300 with left flank and CVA pain . Since admission patient has only taken ice chips. Urine culture is growing a gram neg bacteria. Patient is on IV Rocephin. She is lethargic and still acutely ill. - Review of Systems Constitutional: Malaise Eyes: No Symptoms Ears, Nose, & Throat: No Symptoms Respiratory: No Symptoms Cardiac: No Symptoms Abdominal/Gastrointestinal: Abdominal Pain (left flank) Genitourinary Symptoms: Frequency, Flank Pain Musculoskeletal: No Symptoms Skin: No Symptoms Neurological: Lethargy Psychological: No Symptoms Endocrine: No Symptoms Hematologic/Lymphatic: No Symptoms Medications & Allergies Home Medications: Home Medication List Atorvastatin Calcium [Lipitor] 10 mg PO HS 11/08/21 [History Confirmed 11/08/21] Cephalexin Mh 500 mg [Keflex 500 mg] 500 mg PO Q6H #40 cap 11/10/21 [Rx] Allergies/Adverse Reactions: Allergies Allergy/AdvReac Type Severity Reaction Status Date / Time Sulfa (Sulfonamide Allergy Intermediate Rash Verified 11/08/21 13:57 Antibiotics) lisinopril Allergy Verified 11/08/21 16:56 - Past Medical History Past Medical History: Yes Neurological History: No Pertinent History ENT History: No Pertinent History Cardiac History: Coronary Artery Disease (mild per cardiac calcium score (=97)), Hypertension Respiratory History: No Pertinent History Endocrine Medical History: No Pertinent History Musculoskelatal History: No Pertinent History GI Medical History: No Pertinent History History: No Pertinent History Pyscho-Social History: Anxiety Reproductive Disorders: No Pertinent History Comment: frequent UTIs - Female History Are you now?: No - Past Surgical History Past Surgical History: Yes Neuro Surgical History: No Pertinent History Cardiac History: No Pertinent History Respiratory Surgery: No Pertinent History GI Surgical History: No Pertinent History Genitourinary Surgical Hx: No Pertinent History Musculskeletal Surgical Hx: No Pertinent History Female Surgical History: Tubal Ligation - Social History Smoking Status: Never smoker Exposure to second hand smoke: Yes Alcohol: None Drug Use: none Significant Family History: no pertinent family hx - Physical Exam Vital Signs: Vital Signs - 24 hr Temp Pulse Resp BP Pulse Ox 11/09/21 11:44 97.8 F 103 H 16 110/51 91 L 11/09/21 07:46 98.0 F 73 16 133/63 95 11/09/21 04:00 97.9 F 84 16 129/65 96 11/08/21 23:44 99.3 F 90 18 148/63 96 11/08/21 20:00 98.4 F 87 18 142/64 98 11/08/21 19:23 100 11/08/21 17:08 98.7 F 92 H 18 185/79 98 11/08/21 16:54 98.7 F 92 H 18 185/79 98 11/08/21 16:34 98.7 F 92 H 18 185/79 98 11/08/21 16:00 96 H 18 149/71 98 General Appearance: mild distress, lethargy (appetite,nauseated) Neurologic Exam: alert, oriented x 3, cooperative (decreased affect), 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 Eye Exam: eyes nml inspection Ears, Nose, Throat Exam: normal ENT inspection Neck Exam: normal inspection Respiratory Exam: normal breath sounds Cardiovascular Exam: regular rate/rhythm Gastrointestinal/Abdomen Exam: soft, tenderness (left flank) Pelvic Exam: not done Rectal Exam: not done Back Exam: CVA tenderness (left) Extremity Exam: normal inspection Skin Exam: warm (flushed), dry Results - Labs Lab/Micro Results: Lab Results-Last 24 Hours 11/08/21 11/08/21 11/08/21 Range/Units 15:23 17:54 20:55 WBC (4.0-10.5) K/mm3 RBC (4.1-5.4) M/mm3 Hgb (12.0-16.0) gm/dl Hct (35-47) % MCV (78-100) fl MCH (26-32) pg MCHC (32-36) g/dl RDW (11.5-14.0) % Plt Count (150-450) K/mm3 MPV (7.5-11.0) fl Gran % (36.0-66.0) % Eos # (Auto) (0-0.5) Absolute Lymphs (auto) (1.0-4.6) Absolute Monos (auto) (0.0-1.3) Lymphocytes % (24.0-44.0) % Monocytes % (0.0-12.0) % Eosinophils % (0.00-5.0) % Basophils % (0.0-0.4) % Absolute Granulocytes (1.4-6.9) Basophils # (0-0.4) Sodium (137-145) mmol/L Potassium (3.5-5.1) mmol/L Chloride (98-107) mmol/L Carbon Dioxide (22-30) mmol/L Anion Gap (5-15) MEQ/L BUN (7-17) mg/dL Creatinine (0.52-1.04) mg/dL Estimated GFR ML/MIN Glucose (74-106) mg/dL Calcium (8.4-10.2) mg/dL Total Bilirubin (0.2-1.3) mg/dL AST (14-36) U/L ALT (0-35) U/L Alkaline Phosphatase (38-126) U/L Troponin I < 0.012 < 0.012 (0.000-0.034) ng/mL Serum Total Protein (6.3-8.2) g/dL Albumin (3.5-5.0) g/dL Influenza Type A Ag NEGATIVE (NEGATIVE) Influenza Type B Ag NEGATIVE (NEGATIVE) RSV (PCR) NEGATIVE (Negative) SARS-CoV-2 (PCR) NEGATIVE (NEGATIVE) 11/08/21 11/09/21 11/09/21 Range/Units 23:46 05:20 05:20 WBC 15.3 H (4.0-10.5) K/mm3 RBC 4.22 (4.1-5.4) M/mm3 Hgb 12.8 (12.0-16.0) gm/dl Hct 38.6 (35-47) % MCV 91.5 (78-100) fl MCH 30.3 (26-32) pg MCHC 33.2 (32-36) g/dl RDW 13.5 (11.5-14.0) % Plt Count 195 (150-450) K/mm3 MPV 9.3 (7.5-11.0) fl Gran % 79.9 H (36.0-66.0) % Eos # (Auto) 0.03 (0-0.5) Absolute Lymphs (auto) 2.01 (1.0-4.6) Absolute Monos (auto) 1.03 (0.0-1.3) Lymphocytes % 13.1 L (24.0-44.0) % Monocytes % 6.7 (0.0-12.0) % Eosinophils % 0.2 (0.00-5.0) % Basophils % 0.1 (0.0-0.4) % Absolute Granulocytes 12.21 H (1.4-6.9) Basophils # 0.01 (0-0.4) Sodium (137-145) mmol/L Potassium (3.5-5.1) mmol/L Chloride (98-107) mmol/L Carbon Dioxide (22-30) mmol/L Anion Gap (5-15) MEQ/L BUN (7-17) mg/dL Creatinine (0.52-1.04) mg/dL Estimated GFR ML/MIN Glucose (74-106) mg/dL Calcium (8.4-10.2) mg/dL Total Bilirubin (0.2-1.3) mg/dL AST (14-36) U/L ALT (0-35) U/L Alkaline Phosphatase (38-126) U/L Troponin I < 0.012 < 0.012 (0.000-0.034) ng/mL Serum Total Protein (6.3-8.2) g/dL Albumin (3.5-5.0) g/dL Influenza Type A Ag (NEGATIVE) Influenza Type B Ag (NEGATIVE) RSV (PCR) (Negative) SARS-CoV-2 (PCR) (NEGATIVE) 11/09/21 Range/Units 05:20 WBC (4.0-10.5) K/mm3 RBC (4.1-5.4) M/mm3 Hgb (12.0-16.0) gm/dl Hct (35-47) % MCV (78-100) fl MCH (26-32) pg MCHC (32-36) g/dl RDW (11.5-14.0) % Plt Count (150-450) K/mm3 MPV (7.5-11.0) fl Gran % (36.0-66.0) % Eos # (Auto) (0-0.5) Absolute Lymphs (auto) (1.0-4.6) Absolute Monos (auto) (0.0-1.3) Lymphocytes % (24.0-44.0) % Monocytes % (0.0-12.0) % Eosinophils % (0.00-5.0) % Basophils % (0.0-0.4) % Absolute Granulocytes (1.4-6.9) Basophils # (0-0.4) Sodium 135 L (137-145) mmol/L Potassium 3.7 (3.5-5.1) mmol/L Chloride 103 (98-107) mmol/L Carbon Dioxide 25 (22-30) mmol/L Anion Gap 10.4 (5-15) MEQ/L BUN 18 H (7-17) mg/dL Creatinine 0.90 (0.52-1.04) mg/dL Estimated GFR > 60.0 ML/MIN Glucose 134 H (74-106) mg/dL Calcium 8.1 L (8.4-10.2) mg/dL Total Bilirubin 1.20 (0.2-1.3) mg/dL AST 24 (14-36) U/L ALT 14 (0-35) U/L Alkaline Phosphatase 76 (38-126) U/L Troponin I (0.000-0.034) ng/mL Serum Total Protein 5.9 L (6.3-8.2) g/dL Albumin 3.4 L (3.5-5.0) g/dL Influenza Type A Ag (NEGATIVE) Influenza Type B Ag (NEGATIVE) RSV (PCR) (Negative) SARS-CoV-2 (PCR) (NEGATIVE) Microbiology 11/08/21 14:55 Urine Culture - Preliminary Clean Catch Midstream GRAM NEGATIVE ID AND SENSITIVITY PENDING Assessment/Plan (1) Abdominal pain Status: Acute Assessment & Plan: left flank Code(s): R10.9 - UNSPECIFIED ABDOMINAL PAIN (2) Leukocytosis Status: Acute Qualifiers: Leukocytosis type: bandemia Qualified Code(s): D72.825 - Bandemia Assessment & Plan: UA with >100 WBC,culture pending Code(s): D72.829 - ELEVATED WHITE BLOOD CELL COUNT, UNSPECIFIED (3) Acute pyelonephritis Status: Acute Assessment & Plan: IV fluids and IV Rocephin Code(s): N10 - ACUTE PYELONEPHRITIS (4) Nausea & vomiting Status: Acute Assessment & Plan: zophran and IV fluids Code(s): R11.2 - NAUSEA WITH VOMITING, UNSPECIFIED (5) HTN (hypertension) Status: Chronic Assessment & Plan: monitor Code(s): I10 - ESSENTIAL (PRIMARY) HYPERTENSION
[2021-11-09] MEDS: Sodium Chloride 0.9% W/ 20 mEq KCl/LITER 1,000 ML IV SCH (16:57)
[2021-11-09] MEDS: Zocor 10MG PO SCH (21:13)
[2021-11-10] MEDS: Sodium Chloride 0.9% W/ 20 mEq KCl/LITER 1,000 ML IV SCH (01:00)
[2021-11-10 04:46] LABS: Absolute Neutrophil Ct (ANC) 7.96 (1.4-6.9); Basophil (Absolute #) 0.02 (0-0.4); Eosinophil % 1.8 % (0.00-5.0); Eosinophil (Absolute #) 0.19 (0-0.5); Hemoglobin 11.1 gm/dl (12.0-16.0); Lymphocyte (Absolute #) 1.54 (1.0-4.6); Lymphocytes % 14.7 % (24.0-44.0); Mean Cell Volume 92.6 fl (78-100); Mean Corpuscular Hemoglobin 30.2 pg (26-32); Mean Corpuscular Hgb Concent. 32.6 g/dl (32-36); Mean Platelet Volume 9.3 fl (7.5-11.0); Monocyte (Absolute #) 0.76 (0.0-1.3); Monocytes % 7.3 % (0.0-12.0); Platelet Count 146 K/mm3 (150-450); Red Blood Count 3.67 M/mm3 (4.1-5.4); White Blood Count 10.5 K/mm3 (4.0-10.5)
[2021-11-10 05:42] LABS: ALBUMIN 2.8 g/dL (3.5-5.0); ALKALINE PHOSPHATASE 73 U/L (38-126); ANION GAP 2.1 MEQ/L (5-15); BLOOD UREA NITROGEN 19 mg/dL (7-17); CHLORIDE 114 mmol/L (98-107); Calcium 7.8 mg/dL (8.4-10.2); Carbon Dioxide 22 mmol/L (22-30); EST GLOMERULAR FILTRATION RATE > 60.0 ML/MIN; Glucose 98 mg/dL (74-106); Potassium 3.9 mmol/L (3.5-5.1); SGOT/AST 19 U/L (14-36); SGPT/ALT 13 U/L (0-35); SODIUM 135 mmol/L (137-145); Total Protein 5.4 g/dL (6.3-8.2)
[2021-11-10 08:24] VITALS: BP 140/70; PULSE 83; O2SAT 97
[2021-11-10] MEDS: MOTRIN 600 MG PO PRN (09:45)
[2021-11-10] MEDS: ROCEPHIN 1 Gm-D5w 50 ml Bag** 1 G/50 ML IVPB IV SCH (09:45)
== END 2021-11-10 10:36 | disposition home or self-care (01) ==
LOC: ED 13:49 → MED SURG 16:49 → UNDOADMOB 16:49 → OBSVTOIN 11-09 13:15 → INTOOBSV 11-09 13:15
PROVIDERS: ADMIT Family Medicine; ATTEND Family Medicine
DX: N10 Acute pyelonephritis (principal); D72.829 Elevated white blood cell count, unspecified; I10 Essential (primary) hypertension; R10.9 Unspecified abdominal pain; R11.2 Nausea with vomiting, unspecified; E78.5 Hyperlipidemia, unspecified; I25.10 Atherosclerotic heart disease of native coronary artery without angina pectoris; Z79.899 Other long term (current) drug therapy; Z20.828 Contact with and (suspected) exposure to other viral communicable diseases
CPT/HCPCS: 0241U; 36000; 36415; 80053; 81015; 83605; 84484; 85025; 87040; 87077; 87086; 87186; 96360; 96374; 96375; 99285; G0378; J0696; J1885; J2405; A9270-GY

== ENCOUNTER 2022-05-05 15:43 | Emergency (ER) | payer BC, MEDICAID ==
--- NOTE | 2022-05-05 16:10 | ERPHSYRPT ---
- History of Present Illness Time Seen by Provider: 05/05/22 16:10 Source: patient Exam Limitations: no limitations Physician History: This is a 57-year-old overweight white female patient of Dr. Cartagena who was seen at the clinic and underwent a urinalysis. Patient was have some vomiting and the urinalysis was positive for a significant urinary tract infection. She has left flank pain as well. We will not repeat the urinalysis here in the emergency room. We will provide her with IV hydration, antibiotic and intravenous antibiotics. Patient denies chest pain. She has no shortness of breath. She has had no diarrhea or flulike symptoms. Timing/Duration: today Activites at Onset: none Quality: sharpness Onset Location: generalized flank Severity of Pain-Max: mild (To moderate) Severity of Pain-Current: mild (To moderate) Prior abdominal problems: none Sexual intercourse history: non-contributory Modifying Factors: Improves With: nothing Associated Symptoms: nausea, vomiting, other (Flank pain) Allergies/Adverse Reactions: Sulfa (Sulfonamide Antibiotics) Allergy (Intermediate, Verified 05/05/22 16:26) Rash lisinopril Allergy (Verified 05/05/22 16:26) Home Medications: Atorvastatin Calcium [Lipitor] 10 mg PO HS 11/08/21 [History] Hx Tetanus, Diphtheria Vaccination/Date Given: No Hx Influenza Vaccination/Date Given: Yes Hx Pneumococcal Vaccination/Date Given: No Travel Risk - International Travel Have you traveled outside of the country in past 3 weeks: No - Coronavirus Screening Are you exhibiting any of the following symptoms?: No Close contact with a COVID-19 positive Pt in past 14-21 Days: No - Vaccine Status Have you recieved a Covid-19 vaccination: Yes 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: [employer] - Vaccination Dates Date of 2cond Vaccination (if applicable): 12/2020 - Review of Systems Constitutional: No Symptoms Eyes: No Symptoms Ears, Nose, & Throat: No Symptoms Respiratory: No Symptoms, No Cough, No Dyspnea Cardiac: No Symptoms, No Chest Pain Abdominal/Gastrointestinal: Nausea, Vomiting, No Abdominal Pain, No Diarrhea Genitourinary Symptoms: Flank Pain Musculoskeletal: No Symptoms Skin: No Symptoms Neurological: No Symptoms Psychological: No Symptoms Endocrine: No Symptoms Hematologic/Lymphatic: No Symptoms Immunological/Allergic: No Symptoms All Other Systems: Reviewed and Negative - Past Medical History Pertinent Past Medical History: Yes Neurological History: No Pertinent History ENT History: No Pertinent History Cardiac History: Coronary Artery Disease (mild per cardiac calcium score (=97)), Hypertension Respiratory History: No Pertinent History Endocrine Medical History: No Pertinent History Musculoskeletal History: No Pertinent History GI Medical History: No Pertinent History History: No Pertinent History Psycho-Social History: Anxiety Female Reproductive Disorders: No Pertinent History Other Medical History: frequent UTIs - Past Surgical History Past Surgical History: Yes Neuro Surgical History: No Pertinent History Cardiac: No Pertinent History Respiratory: No Pertinent History Gastrointestinal: No Pertinent History Genitourinary: No Pertinent History Musculoskeletal: No Pertinent History Female Surgical History: Tubal Ligation - Social History Smoking Status: Never smoker Exposure to second hand smoke: Yes Drug Use: none Patient Lives Alone: No Significant Family History: no pertinent family hx - Nursing Vital Signs Nursing Vital Signs: Initial Vital Signs Temperature 99.4 F 05/05/22 16:21 Pulse Rate 99 H 05/05/22 16:21 Respiratory Rate 18 05/05/22 16:21 Blood Pressure 168/105 05/05/22 16:21 O2 Sat by Pulse Oximetry 98 05/05/22 16:21 Pain Scale Pain Intensity 9 - Physical Exam General Appearance: no apparent distress, alert, anxiety, obese Eye Exam: PERRL/EOMI, eyes nml inspection Ears, Nose, Throat Exam: normal ENT inspection, moist mucous membranes Neck Exam: normal inspection, non-tender, supple, full range of motion Respiratory Exam: normal breath sounds, lungs clear, airway intact, No chest tenderness, No respiratory distress Cardiovascular Exam: regular rate/rhythm, normal heart sounds, normal peripheral pulses Gastrointestinal/Abdomen Exam: soft, normal bowel sounds, No tenderness Pelvic Exam: not done Rectal Exam: not done Back Exam: normal inspection, normal range of motion, CVA tenderness (Generalized mild), No vertebral tenderness Extremity Exam: normal inspection, normal range of motion, pelvis stable Neurologic Exam: alert, oriented x 3, cooperative, 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, normal mood/affect, nml cerebellar function, nml station & gait, sensation nml Skin Exam: normal color, warm, dry Lymphatic Exam: No adenopathy SpO2 Interpretation: normal O2 Delivery: Room Air - Course Nursing assessment & vital signs reviewed: Yes Ordered Tests: Active Orders 24 hr Category Date Time Status UA W/RFX CULTURE Stat Lab 05/05/22 Ordered Medication Summary Generic Name Dose Route Start Last Admin Trade Name Freq PRN Reason Stop Dose Admin Ceftriaxone Sodium/Dextrose 1 g in 50 mls @ 100 mls/hr 05/05/22 16:31 Rocephin 1 Gm-D5w 50 Ml Bag IV 05/05/22 17:00 STAT STA Sodium Chloride 500 mls @ 500 mls/hr 05/05/22 16:31 Sodium Chloride 0.9% 500 Ml IV 05/05/22 17:30 .Q1H ONE Discontinued Medications Generic Name Dose Route Start Last Admin Trade Name Wesleyq PRN Reason Stop Dose Admin Ketorolac Tromethamine 30 mg 05/05/22 16:42 Ketorolac Tromethamine 30 Mg/Ml Inj IV 05/05/22 16:43 STAT ONE Ondansetron HCl 4 mg 05/05/22 16:31 Ondansetron Hcl 4 Mg/2 Ml Vial IV 05/05/22 16:32 STAT ONE - Progress Progress: improved, re-examined Air Movement: good Counseled pt/family regarding: lab results, diagnosis, need for follow-up, rad results - Departure Departure Disposition: Home Clinical Impression: UTI (urinary tract infection) Condition: Stable Critical Care Time: No Referrals: KEVYN CARTAGENA DO [Primary Care Provider] - Follow up/PCP as directed Additional Instructions: Drink plenty of fluids. Take your antibiotics as prescribed. Use Tylenol and ibuprofen for both fever control and pain control. Prescriptions: Promethazine HCl 25 mg [Phenergan 25 mg] 25 mg PO Q8H PRN PRN #10 tablet PRN Reason: Nausea/Vomiting Ciprofloxacin [Cipro 500 MG] 500 mg PO BID #14 tablet
[2022-05-05] MEDS ORDERED: TORAdol 30 mg Injection ONE (16:54)
[2022-05-05] MEDS ORDERED: Sodium Chloride 0.9% 500 ML 500 ML IV ONE (16:54)
[2022-05-05] MEDS ORDERED: Zofran 4 MG/2 ML VIAL ONE (16:54)
[2022-05-05] MEDS ORDERED: ROCEPHIN 1 Gm-D5w 50 ml Bag** 1 G/50 ML IVPB IV ONE (16:54)
[2022-05-05] MEDS: Sodium Chloride 0.9% 500 ML 500 ML IV ONE (16:56)
[2022-05-05] MEDS: Zofran 4 MG/2 ML VIAL IV ONE (16:58)
[2022-05-05] MEDS: TORAdol 30 mg Injection IV ONE (17:00)
[2022-05-05] MEDS: ROCEPHIN 1 Gm-D5w 50 ml Bag** 1 G/50 ML IVPB IV STA (17:02)
[2022-05-05 17:38] VITALS: BP 129/76; PULSE 97; O2SAT 97
== END 2022-05-05 17:45 | disposition home or self-care (01) ==
LOC: ED 15:43
DX: N39.0 Urinary tract infection, site not specified (principal); R10.9 Unspecified abdominal pain; I10 Essential (primary) hypertension; Z79.899 Other long term (current) drug therapy
CPT/HCPCS: 96360; 96365; 96374; 96375; 99284; J0696; J1885; J2405

== ENCOUNTER 2022-09-20 17:18 | Emergency (ER) | payer OTHER ==
[2022-09-20] MEDS ORDERED: Sodium Chloride 0.9% 1000 ML 1,000 ML IV STA (19:18)
--- NOTE | 2022-09-20 19:18 | ERPHSYRPT ---
- History of Present Illness Time Seen by Provider: 09/20/22 19:18 Historian: patient Exam Limitations: no limitations Patient Subjective Stated Complaint: pt states "[facility] called to check on her after lithotripsy on Tue and she told them she was having pain, nausea, and throwing up. She was told to go to the closest ED for evaluation" Triage Nursing Assessment: ambulated to room 4 independently after denying need to use restroom for urine specimen. alert and oriented times three. soft abdomen, nontender, nonradiating Physician History: Patient reports 04/12 left flank and LLQ abd pain that has been progressivley worsening since her ESWL on Tuesday. + N/V/D, no fevers, no dysuria Patient also reports having an enlarged appendix for which she is scheduled to see Dr. Riggs for possible removal. Timing/Duration: day(s) (3) Activities at Onset: rest Quality: sharpness, throbbing Abdominal Pain Onset Location: LLQ, flank Pain Radiation: groin Severity of Pain-Max: severe Severity of Pain-Current: severe Modifying Factors: Improves With: nothing. Worsens With: movement, urinating, walking Associated Symptoms: back, diarrhea, loss of appetite, nausea, vomiting, No chest pain, No fever/chills Previous symptoms: no prior history Allergies/Adverse Reactions: Sulfa (Sulfonamide Antibiotics) Allergy (Intermediate, Verified 09/20/22 17:59) Rash lisinopril Allergy (Verified 05/05/22 16:26) Home Medications: Loratadine 10 mg [Claritin 10 mg] 10 mg PO DAILY 09/20/22 [History] Multivit-Min/Folic Acid/Biotin [Hair, Skin and Nails Caplet] 1 each PO DAILY 09/20/22 [History] Multivitamin/Iron/Folic Acid [Centrum Adults Tablet] 1 each PO DAILY 09/20/22 [History] Phenazopyridine HCl 200 mg [Pyridium 200 mg] 200 mg PO TID 09/20/22 [History] Tamsulosin HCl 0.4 mg [Flomax 0.4 MG] 0.4 mg PO DAILY 09/20/22 [History] Tramadol HCl 50 mg [Ultram 50 mg] 50 mg PO Q6H PRN PRN 09/20/22 [History] Hx Tetanus, Diphtheria Vaccination/Date Given: No (unknown) Hx Influenza Vaccination/Date Given: Yes (fall 2021) Hx Pneumococcal Vaccination/Date Given: No Immunizations Up to Date: No Travel Risk - International Travel Have you traveled outside of the country in past 3 weeks: No - Coronavirus Screening Symptoms: Vomiting/Diarrhea - Vaccine Status Have you recieved a Covid-19 vaccination: Yes [employer]: [employer] - Vaccination Dates Date of 2cond Vaccination (if applicable): 12/2020 - Review of Systems Constitutional: No Symptoms Ears, Nose, & Throat: No Symptoms Respiratory: No Symptoms Cardiac: No Symptoms Abdominal/Gastrointestinal: Abdominal Pain, Nausea, Vomiting, Diarrhea, Appetite Changes, No Constipation, No Hematemesis, No Hematochezia, No Melena Genitourinary Symptoms: Hematuria, Flank Pain, No Dysuria, No Frequency, No Vaginal Bleeding, No Vaginal Discharge Musculoskeletal: No Symptoms Skin: No Symptoms Neurological: No Symptoms Psychological: No Symptoms Endocrine: No Symptoms Hematologic/Lymphatic: No Symptoms Immunological/Allergic: No Symptoms - Past Medical History Pertinent Past Medical History: Yes Neurological History: No Pertinent History ENT History: No Pertinent History Cardiac History: Hypertension Respiratory History: No Pertinent History Endocrine Medical History: No Pertinent History Musculoskeletal History: No Pertinent History GI Medical History: No Pertinent History History: No Pertinent History, Other Psycho-Social History: Anxiety Female Reproductive Disorders: No Pertinent History Other Medical History: frequent UTIs, kidney stones - Past Surgical History Past Surgical History: Yes Neuro Surgical History: No Pertinent History Cardiac: No Pertinent History Respiratory: No Pertinent History Gastrointestinal: No Pertinent History Genitourinary: Other Musculoskeletal: No Pertinent History Female Surgical History: Tubal Ligation Other Surgical History: left side renal lithotripsy - Social History Smoking Status: Never smoker Exposure to second hand smoke: Yes () Drug Use: none Patient Lives Alone: No Significant Family History: no pertinent family hx - Nursing Vital Signs Nursing Vital Signs: Initial Vital Signs Temperature 96.3 F 09/20/22 17:44 Pulse Rate 100 H 09/20/22 17:44 Respiratory Rate 20 09/20/22 17:44 Blood Pressure 162/93 09/20/22 17:44 O2 Sat by Pulse Oximetry 98 09/20/22 17:44 Pain Scale Pain Intensity 8 - Physical Exam General Appearance: moderate distress Eye Exam: eyes nml inspection Ears, Nose, Throat Exam: normal ENT inspection Neck Exam: normal inspection, full range of motion Respiratory Exam: normal breath sounds, lungs clear Cardiovascular Exam: normal heart sounds, tachycardia Gastrointestinal/Abdomen Exam: soft, normal bowel sounds, tenderness (LLQ), guarding, No distention, No rebound Back Exam: CVA tenderness (left) Neurologic Exam: alert, oriented x 3, cooperative Skin Exam: normal color, warm, dry SpO2 Interpretation: normal SpO2: 98 O2 Delivery: Room Air - Course Nursing assessment & vital signs reviewed: Yes EKG Interpreted by Me: RATE (104), Sinus Tach, NORMAL AXIS, NORMAL INTERVALS, NORMAL ST-T - CT Exams Abdomen/Pelvis CT Interpretation: Other (mild L renal edema and hydronephrosis w/ calculi, largest 1.5cm, mild L hydroureter up to 8mm w/o ureteral calculi) Ordered Tests: Active Orders 24 hr Category Date Time Status EKG-ER Only STAT Care 09/20/22 19:18 Completed IV Insertion STAT Care 09/20/22 19:18 Completed ABDOMEN AND PELVIS W CONTRAST [CT] Stat Exams 09/20/22 19:19 Completed BLOOD CULTURE Stat Lab 09/20/22 19:50 Received Lactic Acid Stat Lab 09/20/22 19:52 Completed Urine Triage Profile Stat Lab 09/20/22 20:53 Completed Medication Summary Discontinued Medications Generic Name Dose Route Start Last Admin Trade Name Freq PRN Reason Stop Dose Admin Droperidol 1.25 mg 09/20/22 19:18 09/20/22 19:26 Droperidol 5 Mg/2 Ml Vial IV 09/20/22 19:19 1.25 mg STAT ONE Administration Droperidol Confirm 09/20/22 19:21 Droperidol 5 Mg/2 Ml Vial Administered 09/20/22 19:22 Dose 5 mg .ROUTE .STK-MED ONE Sodium Chloride 1,000 mls @ 999 mls/hr 09/20/22 19:18 09/20/22 20:44 Sodium Chloride 0.9% 1000 Ml IV 09/20/22 20:18 Infused .Q1H1M STA Infusion Sodium Chloride Confirm 09/20/22 19:21 Sodium Chloride 0.9% 1000 Ml Administered 09/20/22 19:22 Dose 1,000 mls @ ud .ROUTE .STK-MED ONE Ceftriaxone Sodium/Dextrose 1 g in 50 mls @ 100 mls/hr 09/20/22 21:01 09/20/22 22:03 Rocephin 1 Gm-D5w 50 Ml Bag IV 09/20/22 21:30 100 mls/hr STAT STA 100 mls/hr Administration Ceftriaxone Sodium/Dextrose Confirm 09/20/22 21:53 Rocephin 1 Gm-D5w 50 Ml Bag Administered 09/20/22 21:54 Dose 1 g in 50 mls @ ud IV .STK-MED ONE Lab/Rad Data: Laboratory Result Diagrams 09/20/22 Unknown 09/20/22 Unknown Laboratory Results 09/20/22 09/20/22 09/20/22 Range/Units Unknown Unknown Unknown WBC 14.9 H (4.0-10.5) x10^3/uL RBC 5.04 (4.1-5.4) x10^6/uL Hgb 15.1 (12.0-16.0) g/dL Hct 44.0 (35-47) % MCV 87.3 (78-100) fL MCH 30.0 (26-32) pg MCHC 34.3 (32-36) g/dL RDW 12.3 (11.5-14.0) % Plt Count 249 (150-450) x10^3/uL MPV 9.7 (7.5-11.0) fL Gran % 76.3 H (36.0-66.0) % Immature Gran % (Auto) 0.3 (0.00-0.4) % Nucleat RBC Rel Count 0.0 (0.00-0.1) % Eos # (Auto) 0.08 (0-0.5) x10^3/uL Immature Gran # (Auto) 0.05 H (0.00-0.03) x10^3u/L Absolute Lymphs (auto) 2.10 (1.0-4.6) x10^3/uL Absolute Monos (auto) 1.27 (0.0-1.3) x10^3/uL Absolute Nucleated RBC 0.00 (0.00-0.01) x10^3u/L Lymphocytes % 14.1 L (24.0-44.0) % Monocytes % 8.5 (0.0-12.0) % Eosinophils % 0.5 (0.00-5.0) % Basophils % 0.3 (0.0-0.4) % Absolute Granulocytes 11.34 H (1.4-6.9) x10^3/uL Basophils # 0.04 (0-0.4) x10^3/uL Sodium 138 (137-145) mmol/L Potassium 3.9 (3.5-5.1) mmol/L Chloride 99 (98-107) mmol/L Carbon Dioxide 29 (22-30) mmol/L Anion Gap 13.7 (5-15) MEQ/L BUN 18 H (7-17) mg/dL Creatinine 0.70 (0.52-1.04) mg/dL Estimated GFR > 60.0 ML/MIN Glucose 145 H (74-106) mg/dL Lactic Acid (0.4-2.0) Calcium 9.2 (8.4-10.2) mg/dL Total Bilirubin 1.00 (0.2-1.3) mg/dL AST 27 (14-36) U/L ALT 22 (0-35) U/L Alkaline Phosphatase 130 H (38-126) U/L Troponin I < 0.012 (0.000-0.034) ng/mL Serum Total Protein 7.6 (6.3-8.2) g/dL Albumin 4.4 (3.5-5.0) g/dL Lipase 95 (23-300) U/L Urine Opiates Level (NEGATIVE) Ur Methadone (NEGATIVE) Urine Barbiturates (NEGATIVE) Ur Phencyclidine (PCP) (NEGATIVE) Urine Amphetamine (NEGATIVE) U Benzodiazepine Level (NEGATIVE) Urine Cocaine (NEGATIVE) Urine Marijuana (THC) (NEGATIVE) 09/20/22 09/20/22 Range/Units 20:53 19:52 WBC (4.0-10.5) x10^3/uL RBC (4.1-5.4) x10^6/uL Hgb (12.0-16.0) g/dL Hct (35-47) % MCV (78-100) fL MCH (26-32) pg MCHC (32-36) g/dL RDW (11.5-14.0) % Plt Count (150-450) x10^3/uL MPV (7.5-11.0) fL Gran % (36.0-66.0) % Immature Gran % (Auto) (0.00-0.4) % Nucleat RBC Rel Count (0.00-0.1) % Eos # (Auto) (0-0.5) x10^3/uL Immature Gran # (Auto) (0.00-0.03) x10^3u/L Absolute Lymphs (auto) (1.0-4.6) x10^3/uL Absolute Monos (auto) (0.0-1.3) x10^3/uL Absolute Nucleated RBC (0.00-0.01) x10^3u/L Lymphocytes % (24.0-44.0) % Monocytes % (0.0-12.0) % Eosinophils % (0.00-5.0) % Basophils % (0.0-0.4) % Absolute Granulocytes (1.4-6.9) x10^3/uL Basophils # (0-0.4) x10^3/uL Sodium (137-145) mmol/L Potassium (3.5-5.1) mmol/L Chloride (98-107) mmol/L Carbon Dioxide (22-30) mmol/L Anion Gap (5-15) MEQ/L BUN (7-17) mg/dL Creatinine (0.52-1.04) mg/dL Estimated GFR ML/MIN Glucose (74-106) mg/dL Lactic Acid 1.4 (0.4-2.0) Calcium (8.4-10.2) mg/dL Total Bilirubin (0.2-1.3) mg/dL AST (14-36) U/L ALT (0-35) U/L Alkaline Phosphatase (38-126) U/L Troponin I (0.000-0.034) ng/mL Serum Total Protein (6.3-8.2) g/dL Albumin (3.5-5.0) g/dL Lipase (23-300) U/L Urine Opiates Level NEGATIVE (NEGATIVE) Ur Methadone NEGATIVE (NEGATIVE) Urine Barbiturates NEGATIVE (NEGATIVE) Ur Phencyclidine (PCP) NEGATIVE (NEGATIVE) Urine Amphetamine NEGATIVE (NEGATIVE) U Benzodiazepine Level NEGATIVE (NEGATIVE) Urine Cocaine NEGATIVE (NEGATIVE) Urine Marijuana (THC) NEGATIVE (NEGATIVE) - Progress Progress: improved Progress Note: Patient given Rocephin and Droperidol and responded well. Her CT showed mild L renal edema and hydronephrosis w/ 1.5cm calculi on the left as well as mild L hydroureter up to 8mm w/o ureteral stone. Patient likely passed a large stone fragment just prior to scan. I discussed the patients findings and condition w/ Dr. Mendez who recommended sending patient on home on abx and f/u in clinic in 2-3 days. I discussed this w/ patient who is agreeable to current plan of action. Discussed with Dr.: Other (Andrea) Will see patient in: office Counseled pt/family regarding: lab results, diagnosis, need for follow-up, rad results Medical Desision Making - Discussion of managment Care discussed with:: specialist Reviewed:: Test results Agreed on:: Treatment plan, need for follow-up Will see patient: In office - Diagnostic Testing Radiological Interpretation: Reviewed by me, Teleradiologist Report - Risk of complications The pt has a mod risk of morbidity or mortality based on: Need for prescription drug management - Departure Departure Disposition: Home Clinical Impression: Nephrolithiasis, Hydroureter, Hydronephrosis Condition: Stable Critical Care Time: No Referrals: KEVYN SOSA, [Primary Care Provider] - Follow up/PCP as directed Instructions: Kidney Stones (DC) Additional Instructions: Please follow up w/ Dr. Londono in office w/in 2-3 days. Stop Macrobid and start Keflex. Prescriptions: Cephalexin Mh 500 mg [Keflex 500 mg] 500 mg PO TID 7 Days #21 cap
[2022-09-20] MEDS ORDERED: Sodium Chloride 0.9% 1000 ML 1,000 ML ONE (19:21)
[2022-09-20 19:25] LABS: Absolute Neutrophil Ct (ANC) 11.34 x10^3/uL (1.4-6.9); BASOPHIL % 0.3 % (0.0-0.4); Basophil (Absolute #) 0.04 x10^3/uL (0-0.4); Eosinophil % 0.5 % (0.00-5.0); Eosinophil (Absolute #) 0.08 x10^3/uL (0-0.5); Hemoglobin 15.1 g/dL (12.0-16.0); IMMATURE GRAN # 0.05 x10^3u/L (0.00-0.03); IMMATURE GRAN % 0.3 % (0.00-0.4); Lymphocytes % 14.1 % (24.0-44.0); Mean Cell Volume 87.3 fL (78-100); Mean Corpuscular Hgb Concent. 34.3 g/dL (32-36); Mean Platelet Volume 9.7 fL (7.5-11.0); Monocyte (Absolute #) 1.27 x10^3/uL (0.0-1.3); Monocytes % 8.5 % (0.0-12.0); Neutrophil % 76.3 % (36.0-66.0); Platelet Count 249 x10^3/uL (150-450); Red Blood Count 5.04 x10^6/uL (4.1-5.4); Red Cell Distribution Width 12.3 % (11.5-14.0); White Blood Count 14.9 x10^3/uL (4.0-10.5)
[2022-09-20 19:32] LABS: ALBUMIN 4.4 g/dL (3.5-5.0); ALKALINE PHOSPHATASE 130 U/L (38-126); ANION GAP 13.7 MEQ/L (5-15); BLOOD UREA NITROGEN 18 mg/dL (7-17); CHLORIDE 99 mmol/L (98-107); Calcium 9.2 mg/dL (8.4-10.2); Carbon Dioxide 29 mmol/L (22-30); EST GLOMERULAR FILTRATION RATE > 60.0 ML/MIN; Glucose 145 mg/dL (74-106); LIPASE 95 U/L (23-300); Potassium 3.9 mmol/L (3.5-5.1); SGOT/AST 27 U/L (14-36); SGPT/ALT 22 U/L (0-35); SODIUM 138 mmol/L (137-145); Total Protein 7.6 g/dL (6.3-8.2)
[2022-09-20] MEDS ORDERED: ROCEPHIN 1 Gm-D5w 50 ml Bag** 1 G/50 ML IVPB IV STA (21:01)
[2022-09-20 21:15] LABS: Amphetamine,Urine NEGATIVE (NEGATIVE); Barbiturate,Urine NEGATIVE (NEGATIVE); Benzodiazepine,Urine NEGATIVE (NEGATIVE); Cocaine,Urine NEGATIVE (NEGATIVE); Methadone,Urine NEGATIVE (NEGATIVE); Opiate,Urine NEGATIVE (NEGATIVE); PCP,Urine NEGATIVE (NEGATIVE); THC,Urine NEGATIVE (NEGATIVE)
[2022-09-20] MEDS ORDERED: ROCEPHIN 1 Gm-D5w 50 ml Bag** 1 G/50 ML IVPB IV ONE (21:53)
[2022-09-20 23:33] VITALS: BP 164/88; PULSE 105
--- NOTE | 2022-09-21 09:03 | XRAY ---
Indication: Left abdomen pain, nausea, vomiting, diarrhea. Status post left lithotripsy. Multiple contiguous axial images obtained through the abdomen and pelvis using 80 cc Isovue 370 contrast. Comparison: None Lung bases demonstrate minimal dependent atelectasis. No infiltrate or effusion. Heart is enlarged. Small hiatal hernia. Noncontrasted stomach and bowel loops are nonobstructed. Appendix demonstrates appendicoliths, largest 9 mm at the base with remaining appendix measuring 7-8 mm in diameter. No periappendiceal stranding or free fluid/air. Both kidneys enhance and excrete. Left kidney appears edematous with a few calculi, largest lower calyx measuring 1.5 cm. Also mild hydronephrosis and prominent proximal left ureter up to 8 mm diameter. No obvious distal ureteral calculi. Remaining liver, gallbladder, pancreas, spleen, adrenal glands, right kidney, right ureter, bladder, and uterus are unremarkable. Mild scattered aortoiliac calcifications. No AAA or pathologic retroperitoneal lymphadenopathy. Osseous structures intact with mild/moderate degenerative changes throughout the thoracolumbar spine and mild levoscoliosis centered at L3. Impression: 1. Left renal edema with mild hydronephrosis, calculi, and minimal proximal hydroureter. Findings presumed related to recent lithotripsy. 2. Incidental small hiatal hernia, appendicoliths, and chronic bony findings.
[2022-09-21 19:57] VITALS: O2SAT 98
== END 2022-09-20 23:33 | disposition home or self-care (01) ==
LOC: ED 17:18
DX: N13.2 Hydronephrosis with renal and ureteral calculous obstruction (principal); N13.4 Hydroureter; R10.32 Left lower quadrant pain; G89.18 Other acute postprocedural pain; R11.2 Nausea with vomiting, unspecified; I10 Essential (primary) hypertension; Z79.891 Long term (current) use of opiate analgesic; Z79.899 Other long term (current) drug therapy
CPT/HCPCS: 36000; 36415; 74177; 80053; 80307; 83605; 83690; 84484; 85025; 87040; 93005; 96360; 96365; 96374; 99284; J0696

== ENCOUNTER 2023-02-10 02:22 | Observation (INO) | payer OTHER ==
[2023-02-10] MEDS ORDERED: TORAdol 30 mg Injection IV ONE (02:50)
[2023-02-10] MEDS ORDERED: Sodium Chloride 0.9% 1000 ML 1,000 ML IV STA (02:50)
--- NOTE | 2023-02-10 02:55 | ERPHSYRPT ---
- History of Present Illness Time Seen by Provider: 02/10/23 02:52 Source: patient Exam Limitations: no limitations Physician History: Patient is a 57-year-old female presents to our ED for evaluation of left posterior flank pain. Patient states symptoms started yesterday. Patient was able to sleep comfortably after finding a comfortable position. However tonight patient was unable to find a comfortable position. Pain brought patient into our ED. Pain described as a sharp pain that is localized to her left posterior flank. No specific worsening or improving factors. No trauma. No fever. No urinary symptomology. No obvious hematuria. Symptoms are moderate in intensity. No specific worsening or improving factors. No radiation of pain. Patient admits to history of kidney stones. Patient thinks that she may be experiencing either another kidney stone or possible urine infection. Significant other at bedside. They voiced no other complaints or concerns at this time. Portions of this note were created with voice recognition technology. There may be grammatical, spelling, punctuation or sound alike errors Timing/Duration: yesterday Severity: moderate Modifying Factors: Improves With: nothing Associated Symptoms: denies symptoms Allergies/Adverse Reactions: Sulfa (Sulfonamide Antibiotics) Allergy (Intermediate, Verified 02/10/23 02:45) Rash lisinopril Allergy (Verified 02/10/23 02:45) Home Medications: Loratadine 10 mg [Claritin 10 mg] 10 mg PO DAILY 09/20/22 [History] Multivit-Min/Folic Acid/Biotin [Hair, Skin and Nails Caplet] 1 each PO DAILY 09/20/22 [History] Multivitamin/Iron/Folic Acid [Centrum Adults Tablet] 1 each PO DAILY 09/20/22 [History] Phenazopyridine HCl 200 mg [Pyridium 200 mg] 200 mg PO TID 09/20/22 [History] Hx Tetanus, Diphtheria Vaccination/Date Given: No (unknown) Hx Influenza Vaccination/Date Given: Yes (fall 2021) Hx Pneumococcal Vaccination/Date Given: No Travel Risk - Vaccine Status Have you recieved a Covid-19 vaccination: Yes 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 - Vaccination Dates Date of 2cond Vaccination (if applicable): 12/2020 - Review of Systems Constitutional: No Symptoms, No Fever, No Chills Eyes: No Symptoms Ears, Nose, & Throat: No Symptoms Respiratory: No Symptoms, No Cough, No Dyspnea Cardiac: No Symptoms, No Chest Pain, No Edema, No Syncope Abdominal/Gastrointestinal: No Symptoms, No Abdominal Pain, No Nausea, No Vomiting, No Diarrhea Genitourinary Symptoms: No Symptoms, No Dysuria Musculoskeletal: No Symptoms, No Back Pain, No Neck Pain Skin: No Symptoms, No Rash Neurological: No Symptoms, No Dizziness, No Focal Weakness, No Sensory Changes Psychological: No Symptoms Endocrine: No Symptoms Hematologic/Lymphatic: No Symptoms Immunological/Allergic: No Symptoms All Other Systems: Reviewed and Negative - Past Medical History Pertinent Past Medical History: Yes Neurological History: No Pertinent History ENT History: No Pertinent History Cardiac History: Hypertension Respiratory History: No Pertinent History Endocrine Medical History: No Pertinent History Musculoskeletal History: No Pertinent History GI Medical History: No Pertinent History History: No Pertinent History, Other Psycho-Social History: Anxiety Female Reproductive Disorders: No Pertinent History Other Medical History: frequent UTIs, kidney stones - Past Surgical History Past Surgical History: Yes Neuro Surgical History: No Pertinent History Cardiac: No Pertinent History Respiratory: No Pertinent History Gastrointestinal: No Pertinent History Genitourinary: Other Musculoskeletal: No Pertinent History Female Surgical History: Tubal Ligation Other Surgical History: left side renal lithotripsy - Social History Smoking Status: Never smoker Exposure to second hand smoke: Yes () Drug Use: none Patient Lives Alone: No Significant Family History: no pertinent family hx - Nursing Vital Signs Nursing Vital Signs: Initial Vital Signs Temperature 98.6 F 02/10/23 02:49 Pulse Rate 90 02/10/23 02:49 Respiratory Rate 18 02/10/23 02:49 Blood Pressure 201/107 02/10/23 02:49 O2 Sat by Pulse Oximetry 96 02/10/23 02:49 Pain Scale Pain Intensity 9 - Physical Exam General Appearance: no apparent distress, alert Eye Exam: PERRL/EOMI, eyes nml inspection Ears, Nose, Throat Exam: normal ENT inspection, TMs normal, pharynx normal, moist mucous membranes Neck Exam: normal inspection, non-tender, supple, full range of motion Respiratory Exam: normal breath sounds, lungs clear, airway intact, No respiratory distress Cardiovascular Exam: regular rate/rhythm, normal heart sounds, normal peripheral pulses Gastrointestinal/Abdomen Exam: soft, normal bowel sounds, other (No left CVA tenderness.), No tenderness, No mass Back Exam: normal inspection, normal range of motion, No CVA tenderness, No vertebral tenderness Extremity Exam: normal inspection, normal range of motion, pelvis stable Neurologic Exam: alert, oriented x 3, cooperative, normal mood/affect, nml cerebellar function, nml station & gait, sensation nml, No motor deficits Skin Exam: normal color, warm, dry, No rash Lymphatic Exam: No adenopathy SpO2 Interpretation: normal SpO2: 96 O2 Delivery: Room Air - Course Nursing assessment & vital signs reviewed: Yes - CT Exams Abdomen/Pelvis CT Interpretation: Tele-radiologist Report (Left-sided hydronephrosis is noted showing a slight interval increase. Mild perinephric fat stranding. Small calcific density in the upper pole of the left kidney raising possibility of calculus. Left kidney appears slightly swollen relative to the right.Area identified in the cortical region) Ordered Tests: Active Orders 24 hr Category Date Time Status IV Insertion STAT Care 02/10/23 02:50 Active ABDOMEN AND PELVIS W/0 CONTRAS [CT] Stat Exams 02/10/23 03:23 Completed CBC W DIFF Stat Lab 02/10/23 03:11 Completed CMP Stat Lab 02/10/23 03:11 Completed CULTURE,URINE Stat Lab 02/10/23 03:16 Received TROPONIN Q4H Lab 02/10/23 03:11 Completed TROPONIN Q4H Lab 02/10/23 07:00 Ordered TROPONIN Q4H Lab 02/10/23 11:00 Ordered UA W/RFX UR CULTURE Stat Lab 02/10/23 03:16 Completed Medication Summary Discontinued Medications Generic Name Dose Route Start Last Admin Trade Name Freq PRN Reason Stop Dose Admin Sodium Chloride 1,000 mls @ 999 mls/hr 02/10/23 02:50 02/10/23 03:11 Sodium Chloride 0.9% 1000 Ml IV 02/10/23 03:50 999 mls/hr .Q1H1M STA Administration Sodium Chloride Confirm 02/10/23 03:08 Sodium Chloride 0.9% 1000 Ml Administered 02/10/23 03:09 Dose 1,000 mls @ ud .ROUTE .STK-MED ONE Ceftriaxone Sodium/Dextrose 1 g in 50 mls @ 100 mls/hr 02/10/23 04:16 02/10 04:33 Rocephin 1 Gm-D5w 50 Ml Bag IV 02/10/23 04:45 100 mls/hr STAT STA 100 mls/hr Administration Ceftriaxone Sodium/Dextrose Confirm 02/10/23 04:32 Rocephin 1 Gm-D5w 50 Ml Bag Administered 02/10/23 04:33 Dose 1 g in 50 mls @ ud IV .STK-MED ONE Ketorolac Tromethamine 30 mg 02/10/23 02:50 02/10/23 03:11 Ketorolac Tromethamine 30 Mg/Ml Inj IV 02/10/23 02:51 30 mg STAT ONE Administration Ketorolac Tromethamine Confirm 02/10/23 03:08 Ketorolac Tromethamine 30 Mg/Ml Inj Administered 02/10/23 03:09 Dose 30 mg .ROUTE .STK-MED ONE Potassium Chloride 40 meq 02/10/23 04:17 02/10/23 04:33 Potassium Chloride Tab 10 Meq Tab PO 02/10/23 04:18 40 meq STAT ONE Administration Potassium Chloride Confirm 02/10/23 04:32 Potassium Chloride Tab 10 Meq Tab Administered 02/10/23 04:33 Dose 40 meq PO .STK-MED ONE Lab/Rad Data: Laboratory Result Diagrams 02/10/23 03:11 02/10/23 03:11 Laboratory Results 02/10/23 02/10/23 02/10/23 Range/Units 03:16 03:11 03:11 WBC (4.0-10.5) x10^3/uL RBC (4.1-5.4) x10^6/uL Hgb (12.0-16.0) g/dL Hct (35-47) % MCV (78-100) fL MCH (26-32) pg MCHC (32-36) g/dL RDW (11.5-14.0) % Plt Count (150-450) x10^3/uL MPV (7.5-11.0) fL Gran % (36.0-66.0) % Immature Gran % (Auto) (0.00-0.4) % Nucleat RBC Rel Count (0.00-0.1) % Eos # (Auto) (0-0.5) x10^3/uL Immature Gran # (Auto) (0.00-0.03) x10^3u/L Absolute Lymphs (auto) (1.0-4.6) x10^3/uL Absolute Monos (auto) (0.0-1.3) x10^3/uL Absolute Nucleated RBC (0.00-0.01) x10^3u/L Lymphocytes % (24.0-44.0) % Monocytes % (0.0-12.0) % Eosinophils % (0.00-5.0) % Basophils % (0.0-0.4) % Absolute Granulocytes (1.4-6.9) x10^3/uL Basophils # (0-0.4) x10^3/uL Sodium 138 (137-145) mmol/L Potassium 3.4 L (3.5-5.1) mmol/L Chloride 104 (98-107) mmol/L Carbon Dioxide 26 (22-30) mmol/L Anion Gap 11.2 (5-15) MEQ/L BUN 17 (7-17) mg/dL Creatinine 0.71 (0.52-1.04) mg/dL Estimated GFR > 60.0 ML/MIN Glucose 161 H (74-106) mg/dL Calcium 8.6 (8.4-10.2) mg/dL Total Bilirubin 1.10 (0.2-1.3) mg/dL AST 58 H (14-36) U/L ALT 48 H (0-35) U/L Alkaline Phosphatase 149 H (38-126) U/L Troponin I 0.013 (0.000-0.034) ng/mL Serum Total Protein 6.4 (6.3-8.2) g/dL Albumin 3.6 (3.5-5.0) g/dL Urine Color [place] A (Yellow) Urine Appearance Cloudy A (Clear) Urine pH 6.0 (4.6-8.0) Ur Specific [place] 1.015 (1.005-1.030) Urine Protein 100 A (Negative) Urine Glucose (UA) Negative (Negative) mg/dL Urine Ketones Negative (Negative) Urine Blood Large A (Negative) Urine Nitrite Positive A (Negative) Urine Bilirubin Moderate A (Negative) Urine Urobilinogen 1.0 A (0.2) mg/dL Ur Leukocyte Esterase Large A (Negative) U Hyaline Cast (Auto) NONE SEEN (0-2) /LPF Urine Microscopic RBC >100 A (0-5) /HPF Urine Microscopic WBC >100 A (0-5) /HPF Ur Epithelial Cells Rare (None Seen) /HPF Calcium Oxalate Crystal 3-5 A (None Seen) /HPF Urine Bacteria Many A (None Seen) /HPF Urine Culture Reflexed YES (NO) 02/10/23 Range/Units 03:11 WBC 14.7 H (4.0-10.5) x10^3/uL RBC 4.46 (4.1-5.4) x10^6/uL Hgb 13.3 (12.0-16.0) g/dL Hct 39.0 (35-47) % MCV 87.4 (78-100) fL MCH 29.8 (26-32) pg MCHC 34.1 (32-36) g/dL RDW 12.9 (11.5-14.0) % Plt Count 179 (150-450) x10^3/uL MPV 9.6 (7.5-11.0) fL Gran % 72.6 H (36.0-66.0) % Immature Gran % (Auto) 0.9 H (0.00-0.4) % Nucleat RBC Rel Count 0.0 (0.00-0.1) % Eos # (Auto) 0.32 (0-0.5) x10^3/uL Immature Gran # (Auto) 0.13 H (0.00-0.03) x10^3u/L Absolute Lymphs (auto) 2.46 (1.0-4.6) x10^3/uL Absolute Monos (auto) 1.06 (0.0-1.3) x10^3/uL Absolute Nucleated RBC 0.00 (0.00-0.01) x10^3u/L Lymphocytes % 16.8 L (24.0-44.0) % Monocytes % 7.2 (0.0-12.0) % Eosinophils % 2.2 (0.00-5.0) % Basophils % 0.3 (0.0-0.4) % Absolute Granulocytes 10.65 H (1.4-6.9) x10^3/uL Basophils # 0.05 (0-0.4) x10^3/uL Sodium (137-145) mmol/L Potassium (3.5-5.1) mmol/L Chloride (98-107) mmol/L Carbon Dioxide (22-30) mmol/L Anion Gap (5-15) MEQ/L BUN (7-17) mg/dL Creatinine (0.52-1.04) mg/dL Estimated GFR ML/MIN Glucose (74-106) mg/dL Calcium (8.4-10.2) mg/dL Total Bilirubin (0.2-1.3) mg/dL AST (14-36) U/L ALT (0-35) U/L Alkaline Phosphatase (38-126) U/L Troponin I (0.000-0.034) ng/mL Serum Total Protein (6.3-8.2) g/dL Albumin (3.5-5.0) g/dL Urine Color (Yellow) Urine Appearance (Clear) Urine pH (4.6-8.0) Ur Specific [place] (1.005-1.030) Urine Protein (Negative) Urine Glucose (UA) (Negative) mg/dL Urine Ketones (Negative) Urine Blood (Negative) Urine Nitrite (Negative) Urine Bilirubin (Negative) Urine Urobilinogen (0.2) mg/dL Ur Leukocyte Esterase (Negative) U Hyaline Cast (Auto) (0-2) /LPF Urine Microscopic RBC (0-5) /HPF Urine Microscopic WBC (0-5) /HPF Ur Epithelial Cells (None Seen) /HPF Calcium Oxalate Crystal (None Seen) /HPF Urine Bacteria (None Seen) /HPF Urine Culture Reflexed (NO) - Progress Progress: improved Progress Note: Patient is a 57-year-old female presents to our ED for evaluation of left sided flank pain. Pain has been progressive over the past day. Physical exam essentially nonremarkable. However CT abdomen pelvis reveals perinephric fat stranding. Urinalysis revealed a significant urinary tract infection. CBC reveals a leukocytosis. CMP revealed a mild hypokalemia. Screening troponin negative. Patient received a dose of Rocephin in our ED. Normal saline adminis tered. Toradol administered for pain control. Patient reassessed. Pain significantly improved. In light of imaging findings, laboratory findings as well as history and physical patient will be admitted for pyelonephritis. Plan of care discussed with patient. She agrees to admission to [facility] for further evaluation and treatment. Portions of this note were created with voice recognition technology. There may be grammatical, spelling, punctuation or sound alike errors Complexity of problems addressed is high. Problems or threat to function of kidney as well as possible development of sepsis. No critical care time Complexity of data reviewed and analyzed is extensive. Test ordered. Test reviewed. Clinical correlation made between findings and history and physical examination. Case and management discussed with Dr. Diggs who excepts admission to observation. Risk of complication and or risk of morbidity/mortality of patient management is high. Patient will require hospitalization for further evaluation and treatment of pyelonephritis. Vital stable. Diagnosis pyelonephritis. Time spent to admit patient is approximately 15 minutes. Plan of care established for shared decision making. Significant other at bedside. They voiced no other complaints or concerns at this time. Portions of this note were created with voice recognition technology. There may be grammatical, spelling, punctuation or sound alike errors 02/10/23 05:21 Counseled pt/family regarding: lab results, diagnosis, need for follow-up, rad results - Departure Departure Disposition: Observation Clinical Impression: UTI (urinary tract infection), Leukocytosis, Hypokalemia, Pyelonephritis, Nephrolithiasis Condition: Stable Critical Care Time: No Referrals: KEVYN SOSA, DO [Primary Care Provider] - Follow up/PCP as directed
[2023-02-10] MEDS ORDERED: TORAdol 30 mg Injection ONE (03:08)
[2023-02-10] MEDS ORDERED: Sodium Chloride 0.9% 1000 ML 1,000 ML ONE (03:08)
[2023-02-10 03:14] LABS: Absolute Neutrophil Ct (ANC) 10.65 x10^3/uL (1.4-6.9); BASOPHIL % 0.3 % (0.0-0.4); Basophil (Absolute #) 0.05 x10^3/uL (0-0.4); Eosinophil % 2.2 % (0.00-5.0); Eosinophil (Absolute #) 0.32 x10^3/uL (0-0.5); Hemoglobin 13.3 g/dL (12.0-16.0); IMMATURE GRAN # 0.13 x10^3u/L (0.00-0.03); IMMATURE GRAN % 0.9 % (0.00-0.4); Lymphocyte (Absolute #) 2.46 x10^3/uL (1.0-4.6); Lymphocytes % 16.8 % (24.0-44.0); Mean Cell Volume 87.4 fL (78-100); Mean Corpuscular Hemoglobin 29.8 pg (26-32); Mean Corpuscular Hgb Concent. 34.1 g/dL (32-36); Mean Platelet Volume 9.6 fL (7.5-11.0); Monocyte (Absolute #) 1.06 x10^3/uL (0.0-1.3); Monocytes % 7.2 % (0.0-12.0); Neutrophil % 72.6 % (36.0-66.0); Platelet Count 179 x10^3/uL (150-450); Red Blood Count 4.46 x10^6/uL (4.1-5.4); Red Cell Distribution Width 12.9 % (11.5-14.0); White Blood Count 14.7 x10^3/uL (4.0-10.5)
[2023-02-10 03:15] LABS: Appearance Cloudy (Clear); Bilirubin Moderate (Negative); Blood Large (Negative); Glucose, Urine Negative (Negative); Ketones Negative (Negative); Leukocyte Esterase Large (Negative); Nitrite Positive (Negative); Protein,Urine Dip 100 (Negative); Specific Gravity 1.015 (1.005-1.030)
[2023-02-10 03:23] LABS: Bacteria Many /HPF (None Seen); Epithelial Cells Rare /HPF (None Seen); Hyaline Casts NONE SEEN /LPF (0-2); RBC >100 /HPF (0-5); WBC >100 /HPF (0-5)
[2023-02-10 03:27] LABS: ALBUMIN 3.6 g/dL (3.5-5.0); ALKALINE PHOSPHATASE 149 U/L (38-126); ANION GAP 11.2 MEQ/L (5-15); BLOOD UREA NITROGEN 17 mg/dL (7-17); CHLORIDE 104 mmol/L (98-107); Calcium 8.6 mg/dL (8.4-10.2); Carbon Dioxide 26 mmol/L (22-30); Creatinine 1 0.71 mg/dL (0.52-1.04); EST GLOMERULAR FILTRATION RATE > 60.0 ML/MIN; Glucose 161 mg/dL (74-106); Potassium 3.4 mmol/L (3.5-5.1); SGOT/AST 58 U/L (14-36); SGPT/ALT 48 U/L (0-35); SODIUM 138 mmol/L (137-145); Total Protein 6.4 g/dL (6.3-8.2)
[2023-02-10 03:31] LABS: ADD URINE CULTURE? YES (NO)
[2023-02-10] MEDS ORDERED: ROCEPHIN 1 Gm-D5w 50 ml Bag** 1 G/50 ML IVPB IV STA (04:16)
[2023-02-10] MEDS ORDERED: Klor Con PO ONE ×2 (04:17→04:32)
[2023-02-10] MEDS ORDERED: ROCEPHIN 1 Gm-D5w 50 ml Bag** 1 G/50 ML IVPB IV ONE (04:32)
--- NOTE | 2023-02-10 04:40 | XRAY ---
CLINICAL HISTORY:pain COMPARISON:CT study dated 09/20/2022. TECHNIQUE:CT of the abdomen and pelvis was performed in axial plane with sagittal and coronal reconstructed images without intravenous contrast administration. FINDINGS: Left sided hydroureteronephrosis is noted, showing a slight interval increase. Mild perinephric fat stranding. Small calcific density in the upper pole of the left kidney, raising the possibility of calculus. The left kidney appears slightly swollen relative to the right. A speck of air is identified in the cortical region of the upper pole of the left kidney. Small amount of air is also noted in the under-distended urinary bladder. These findings may be post intervention sequelae. However, clinical correlation and follow-up are advised to rule out early/developing pyelonephritis. The kidneys appear unremarkable with no cyst, masses or hydronephrosis on right side. The liver is normal in size, morphology and appears unremarkable with no intrahepatic or extrahepatic bile duct dilation. Unremarkable appearing gallbladder with no stones wall thickening or pericholecystic inflammatory changes or fluid. Unremarkable appearing pancreas. No pancreatic mass or ductal dilatation is seen. Unremarkable appearing spleen. The adrenal glands are normal. Unremarkable abdominal aorta without specific evidence of aneurysm or dissection. The stomach appears unremarkable. Small hiatal hernia. Unremarkable appearing duodenum. Small bowel and colon are non-distended with no abnormality. Fecal loaded large bowel loops. Few diverticuli are seen involving the sigmoid colon. No free air and no ascites. No free intraperitoneal air is seen. Bladder is unremarkable with no stones. No other bony abnormality is detected. Visualised vertebrae shows degenerative changes. Aortic wall calcification noted. IMPRESSION: 1. Left sided hydroureteronephrosis is noted, showing a slight interval increase. Mild perinephric fat stranding. 2. Small calcific density in the upper pole of the left kidney, raising the possibility of calculus. 3. The left kidney appears slightly swollen relative to the right. A speck of air is identified in the cortical region of the upper pole of the left kidney. 4. Small amount of air is also noted in the under-distended urinary bladder. 5. These findings may be post intervention sequelae. However, clinical correlation and follow-up are advised to rule out early/developing pyelonephritis. Electronically Signed by: Emmanuelle Johnson MD. (02/10/2023 03:38:43 [employer])
[2023-02-10] MEDS ORDERED: MORPHINE SULFATE 2 MG INJ IV PRN (06:33)
[2023-02-10] MEDS ORDERED: Zofran 4 MG/2 ML VIAL IV PRN (06:34)
[2023-02-10] MEDS ORDERED: Sodium Chloride 0.9% 1000 ML 1,000 ML IV SCH (06:45)
[2023-02-10] MEDS: Sodium Chloride 0.9% 1000 ML 1,000 ML IV SCH ×2 (06:46→16:13)
[2023-02-10] MEDS ORDERED: TYLENOL 325 MG PO PRN (08:27)
[2023-02-10] MEDS: THERAGRAN MULTIVITAMIN PO SCH (09:40)
[2023-02-10] MEDS: CLARITIN 10 MG PO SCH (09:40)
[2023-02-10] MEDS ORDERED: BIOTIN PO SCH (10:00)
[2023-02-10] MEDS ORDERED: MULTIVITAMIN PO SCH (10:00)
[2023-02-10] MEDS ORDERED: [UNRECOGNIZED DRUG - OTHER] PO SCH (10:00)
[2023-02-10] MEDS ORDERED: NON-FORMULARY ITEM (Multivitamin/Iron/Folic Acid [Centrum Adults Tablet] 1 EACH Tablet) PO SCH (10:00)
[2023-02-10] MEDS ORDERED: FOLIC ACID PO SCH (10:00)
[2023-02-10] MEDS: APRESOLINE 20 MG/ML INJ IV PRN (11:26)
[2023-02-10] MEDS ORDERED: CLONIDINE 0.1 MG TABLET PO ONE (12:38)
--- NOTE | 2023-02-10 16:18 | PCM.HP ---
History of Present Illness - Chief Complaint Chief Complaint: Pyelonephritis, leukocytosis History of Present Illness: is a 57 year old female with a pmhx kidney stones and recurrent UTI's who presented to ED 02/10/23 with complaints of left flank pain with the onset of one day ago. Of note, patient states that on 02/07/23 she underwent kidney stone removal to the left kidney with Dr. Londono urology. She states that her pain is sharp with moderate intensity with no aggravating or alleviating factors. In ER, patient was hypertensive. CT of the abdomen and pelvis noted left-sided hydroureteronophrosis with mild perinephric fat stranding. Also noted was a small calcific density in the upper pole of the left kidney. Laboratory interpretation was remarkable for leukocytosis with WBC at 14.7, hypokalemia with potassium at 3.4, and transmasinitis with ast at 58, alt at 48, alk phos at 149. UA is suspicious for UTI, although unclear whether this may just be from recent procedure. Patient treated with Rocephin and IVF with noted improvement overnight. PCP:[facility]: Mary Roe Code status: Full code - Review of Systems Constitutional: No Symptoms Eyes: No Symptoms Ears, Nose, & Throat: No Symptoms Respiratory: No Symptoms Cardiac: No Symptoms Abdominal/Gastrointestinal: No Symptoms Genitourinary Symptoms: No Symptoms Musculoskeletal: No Symptoms Skin: No Symptoms Neurological: No Symptoms Psychological: No Symptoms Medications & Allergies Home Medications: Home Medication List Loratadine 10 mg [Claritin 10 mg] 10 mg PO DAILY 09/20/22 [History Confirmed 02/10/23] Multivit-Min/Folic Acid/Biotin [Hair, Skin and Nails Caplet] 1 each PO DAILY 09/20/22 [History Confirmed 02/10/23] Multivitamin/Iron/Folic Acid [Centrum Adults Tablet] 1 each PO DAILY 09/20/22 [History Confirmed 02/10/23] Phenazopyridine HCl 200 mg [Pyridium 200 mg] 200 mg PO TID 09/20/22 [History Confirmed 02/10/23] Allergies/Adverse Reactions: Allergies Allergy/AdvReac Type Severity Reaction Status Date / Time Sulfa (Sulfonamide Allergy Intermediate Rash Verified 02/10/23 02:45 Antibiotics) lisinopril Allergy Verified 02/10/23 02:45 - Past Medical History Past Medical History: Yes Neurological History: No Pertinent History ENT History: No Pertinent History Cardiac History: No Pertinent History Respiratory History: No Pertinent History Endocrine Medical History: No Pertinent History Musculoskelatal History: No Pertinent History GI Medical History: No Pertinent History History: No Pertinent History, Other Pyscho-Social History: No Pertinent History Reproductive Disorders: No Pertinent History Comment: frequent UTIs, kidney stones - Female History Are you now?: No - Past Surgical History Past Surgical History: Yes Neuro Surgical History: No Pertinent History Cardiac History: No Pertinent History Respiratory Surgery: No Pertinent History GI Surgical History: No Pertinent History Genitourinary Surgical Hx: Other Musculskeletal Surgical Hx: No Pertinent History Female Surgical History: Tubal Ligation Other Surgical History: left side renal lithotripsy - Social History Smoking Status: Never smoker Exposure to second hand smoke: Yes () Alcohol: None Drug Use: none Significant Family History: no pertinent family hx - Physical Exam Vital Signs: Vital Signs - 24 hr Temp Pulse Resp BP BP Pulse Ox 02/10/23 12:36 92 H 184/82 02/10/23 11:44 96.8 F 87 16 183/90 95 02/10/23 11:25 87 183/90 02/10/23 08:30 79 175/86 02/10/23 08:00 79 175/86 02/10/23 05:57 98.0 F 82 19 177/88 92 L 02/10/23 05:28 96 02/10/23 04:04 89 17 148/106 96 02/10/23 04:01 86 97 02/10/23 03:00 77 16 193/120 96 02/10/23 02:49 98.6 F 90 18 201/107 96 General Appearance: no apparent distress Neurologic Exam: alert, oriented x 3, normal mood/affect Eye Exam: PERRL/EOMI Ears, Nose, Throat Exam: dry mucous membranes Respiratory Exam: normal breath sounds Cardiovascular Exam: regular rate/rhythm Gastrointestinal/Abdomen Exam: soft, normal bowel sounds, tenderness (CVA tenderness left) Pelvic Exam: not done Extremity Exam: normal inspection Results - Labs Lab/Micro Results: Lab Results-Last 24 Hours 02/10/23 02/10/23 02/10/23 Range/Units 03:11 03:11 03:11 WBC 14.7 H (4.0-10.5) x10^3/uL RBC 4.46 (4.1-5.4) x10^6/uL Hgb 13.3 (12.0-16.0) g/dL Hct 39.0 (35-47) % MCV 87.4 (78-100) fL MCH 29.8 (26-32) pg MCHC 34.1 (32-36) g/dL RDW 12.9 (11.5-14.0) % Plt Count 179 (150-450) x10^3/uL MPV 9.6 (7.5-11.0) fL Gran % 72.6 H (36.0-66.0) % Immature Gran % (Auto) 0.9 H (0.00-0.4) % Nucleat RBC Rel Count 0.0 (0.00-0.1) % Eos # (Auto) 0.32 (0-0.5) x10^3/uL Immature Gran # (Auto) 0.13 H (0.00-0.03) x10^3u/L Absolute Lymphs (auto) 2.46 (1.0-4.6) x10^3/uL Absolute Monos (auto) 1.06 (0.0-1.3) x10^3/uL Absolute Nucleated RBC 0.00 (0.00-0.01) x10^3u/L Lymphocytes % 16.8 L (24.0-44.0) % Monocytes % 7.2 (0.0-12.0) % Eosinophils % 2.2 (0.00-5.0) % Basophils % 0.3 (0.0-0.4) % Absolute Granulocytes 10.65 H (1.4-6.9) x10^3/uL Basophils # 0.05 (0-0.4) x10^3/uL Sodium 138 (137-145) mmol/L Potassium 3.4 L (3.5-5.1) mmol/L Chloride 104 (98-107) mmol/L Carbon Dioxide 26 (22-30) mmol/L Anion Gap 11.2 (5-15) MEQ/L BUN 17 (7-17) mg/dL Creatinine 0.71 (0.52-1.04) mg/dL Estimated GFR > 60.0 ML/MIN Glucose 161 H (74-106) mg/dL Calcium 8.6 (8.4-10.2) mg/dL Total Bilirubin 1.10 (0.2-1.3) mg/dL AST 58 H (14-36) U/L ALT 48 H (0-35) U/L Alkaline Phosphatase 149 H (38-126) U/L Troponin I 0.013 (0.000-0.034) ng/mL Serum Total Protein 6.4 (6.3-8.2) g/dL Albumin 3.6 (3.5-5.0) g/dL Urine Color (Yellow) Urine Appearance (Clear) Urine pH (4.6-8.0) Ur Specific [place] (1.005-1.030) Urine Protein (Negative) Urine Glucose (UA) (Negative) mg/dL Urine Ketones (Negative) Urine Blood (Negative) Urine Nitrite (Negative) Urine Bilirubin (Negative) Urine Urobilinogen (0.2) mg/dL Ur Leukocyte Esterase (Negative) U Hyaline Cast (Auto) (0-2) /LPF Urine Microscopic RBC (0-5) /HPF Urine Microscopic WBC (0-5) /HPF Ur Epithelial Cells (None Seen) /HPF Calcium Oxalate Crystal (None Seen) /HPF Urine Bacteria (None Seen) /HPF Urine Culture Reflexed (NO) 02/10/23 Range/Units 03:16 WBC (4.0-10.5) x10^3/uL RBC (4.1-5.4) x10^6/uL Hgb (12.0-16.0) g/dL Hct (35-47) % MCV (78-100) fL MCH (26-32) pg MCHC (32-36) g/dL RDW (11.5-14.0) % Plt Count (150-450) x10^3/uL MPV (7.5-11.0) fL Gran % (36.0-66.0) % Immature Gran % (Auto) (0.00-0.4) % Nucleat RBC Rel Count (0.00-0.1) % Eos # (Auto) (0-0.5) x10^3/uL Immature Gran # (Auto) (0.00-0.03) x10^3u/L Absolute Lymphs (auto) (1.0-4.6) x10^3/uL Absolute Monos (auto) (0.0-1.3) x10^3/uL Absolute Nucleated RBC (0.00-0.01) x10^3u/L Lymphocytes % (24.0-44.0) % Monocytes % (0.0-12.0) % Eosinophils % (0.00-5.0) % Basophils % (0.0-0.4) % Absolute Granulocytes (1.4-6.9) x10^3/uL Basophils # (0-0.4) x10^3/uL Sodium (137-145) mmol/L Potassium (3.5-5.1) mmol/L Chloride (98-107) mmol/L Carbon Dioxide (22-30) mmol/L Anion Gap (5-15) MEQ/L BUN (7-17) mg/dL Creatinine (0.52-1.04) mg/dL Estimated GFR ML/MIN Glucose (74-106) mg/dL Calcium (8.4-10.2) mg/dL Total Bilirubin (0.2-1.3) mg/dL AST (14-36) U/L ALT (0-35) U/L Alkaline Phosphatase (38-126) U/L Troponin I (0.000-0.034) ng/mL Serum Total Protein (6.3-8.2) g/dL Albumin (3.5-5.0) g/dL Urine Color [place] A (Yellow) Urine Appearance Cloudy A (Clear) Urine pH 6.0 (4.6-8.0) Ur Specific [place] 1.015 (1.005-1.030) Urine Protein 100 A (Negative) Urine Glucose (UA) Negative (Negative) mg/dL Urine Ketones Negative (Negative) Urine Blood Large A (Negative) Urine Nitrite Positive A (Negative) Urine Bilirubin Moderate A (Negative) Urine Urobilinogen 1.0 A (0.2) mg/dL Ur Leukocyte Esterase Large A (Negative) U Hyaline Cast (Auto) NONE SEEN (0-2) /LPF Urine Microscopic RBC >100 A (0-5) /HPF Urine Microscopic WBC >100 A (0-5) /HPF Ur Epithelial Cells Rare (None Seen) /HPF Calcium Oxalate Crystal 3-5 A (None Seen) /HPF Urine Bacteria Many A (None Seen) /HPF Urine Culture Reflexed YES (NO) - Radiology Impressions Radiology Exams & Impressions: Radiology Procedures Category Date Time Status ABDOMEN AND PELVIS W/0 CONTRAS [CT] Stat Exams 02/10/23 03:23 Completed Assessment/Plan (1) Pyelonephritis Current Visit: Yes Status: Acute Assessment & Plan: -CT findings suspicious for pyelonephritis although findings could be related to recent kidney stone removal -Ucult pending, will treat with rocephin for now Code(s): N12 - TUBULO-INTERSTITIAL NEPHRITIS, NOT SPCF ACUTE OR CHRONIC (2) Leukocytosis Current Visit: Yes Status: Acute Qualifiers: Assessment & Plan: -Could be secondary to pyelonephritis vs reactive from recent surgery, will treat with rocephin for now Code(s): D72.829 - ELEVATED WHITE BLOOD CELL COUNT, UNSPECIFIED (3) Hypokalemia Current Visit: Yes Status: Acute Assessment & Plan: -Replenish with oral potassium, continue to monitor and replace as appropriate Code(s): E87.6 - HYPOKALEMIA (4) UTI (urinary tract infection) Current Visit: Yes Status: Acute Assessment & Plan: - Will treat with rocephin empirically, follow culture, there is question as to possible false positive due to recent surgery Code(s): N39.0 - URINARY TRACT INFECTION, SITE NOT SPECIFIED (5) Abdominal pain Current Visit: No Status: Resolved Assessment & Plan: -resolved per patient Code(s): R10.9 - UNSPECIFIED ABDOMINAL PAIN Telemedicine Encounter - Telemedicine Encounter Telemedicine Encounter: The entirety of this encounter was performed via Telemedicine"
[2023-02-10] MEDS ORDERED: ROCEPHIN 1 Gm-D5w 50 ml Bag** 1 G/50 ML IVPB IV SCH (22:00)
[2023-02-11] MEDS: Sodium Chloride 0.9% 1000 ML 1,000 ML IV SCH (02:37)
[2023-02-11 03:59] VITALS: RESP 17
[2023-02-11 04:56] LABS: Absolute Neutrophil Ct (ANC) 5.95 x10^3/uL (1.4-6.9); BASOPHIL % 0.5 % (0.0-0.4); Basophil (Absolute #) 0.05 x10^3/uL (0-0.4); Eosinophil % 3.8 % (0.00-5.0); Eosinophil (Absolute #) 0.39 x10^3/uL (0-0.5); Hematocrit 36.3 % (35-47); Hemoglobin 12.4 g/dL (12.0-16.0); IMMATURE GRAN # 0.06 x10^3u/L (0.00-0.03); IMMATURE GRAN % 0.6 % (0.00-0.4); Lymphocyte (Absolute #) 2.79 x10^3/uL (1.0-4.6); Lymphocytes % 27.4 % (24.0-44.0); Mean Cell Volume 88.1 fL (78-100); Mean Corpuscular Hemoglobin 30.1 pg (26-32); Mean Corpuscular Hgb Concent. 34.2 g/dL (32-36); Mean Platelet Volume 9.9 fL (7.5-11.0); Monocyte (Absolute #) 0.93 x10^3/uL (0.0-1.3); Monocytes % 9.1 % (0.0-12.0); Neutrophil % 58.6 % (36.0-66.0); Platelet Count 168 x10^3/uL (150-450); Red Blood Count 4.12 x10^6/uL (4.1-5.4); Red Cell Distribution Width 13.2 % (11.5-14.0); White Blood Count 10.2 x10^3/uL (4.0-10.5)
[2023-02-11 05:30] LABS: ALBUMIN 3.3 g/dL (3.5-5.0); ALKALINE PHOSPHATASE 161 U/L (38-126); ANION GAP 10.4 MEQ/L (5-15); BLOOD UREA NITROGEN 13 mg/dL (7-17); CHLORIDE 107 mmol/L (98-107); Calcium 8.6 mg/dL (8.4-10.2); Carbon Dioxide 24 mmol/L (22-30); EST GLOMERULAR FILTRATION RATE > 60.0 ML/MIN; Glucose 112 mg/dL (74-106); Potassium 3.9 mmol/L (3.5-5.1); SGOT/AST 41 U/L (14-36); SGPT/ALT 43 U/L (0-35); SODIUM 137 mmol/L (137-145); Total Protein 5.8 g/dL (6.3-8.2)
[2023-02-11] MEDS: THERAGRAN MULTIVITAMIN PO SCH (09:19)
[2023-02-11] MEDS: CLARITIN 10 MG PO SCH (09:19)
[2023-02-11] MEDS: APRESOLINE 20 MG/ML INJ IV PRN (11:14)
[2023-02-11 12:03] VITALS: PULSE 85; TEMP 97; O2SAT 96
--- NOTE | 2023-02-11 12:43 | PCM.DS ---
Discharge Summary Date of Admission: 02/10/23 05:27 Date of Discharge: 02/11/23 Admitting Physician: JUDY ROMERO MD Primary Care Provider: KEVYN SOSA DO Allergies Allergies Sulfa (Sulfonamide Antibiotics) Allergy (Intermediate, Verified 02/10/23 02:45) Rash lisinopril Allergy (Verified 02/10/23 02:45) Hospital Summary - Hospital Course Hospital Course: Mrs. chavez is a 57 year old femalewith a history of recurrent kidney stones, including instrumentation earlier this week for removal of a stone, presenting with left flank pain. Recent stone removal is the explanation for her mild left hydroureteronephrosis idenified on CT imaging. Flank pain may simply be from irritation from the procedure. It is possible patient also has UTI/pyeloneph ritis associated with this. However, she has no dysuria. Urinalysis is difficult to interpret because of all of the red cells in there. Urine culture positive for gram negative bacteria. She has received two days of Ceftriaxone, symptoms have resolved. She will continue on oral cefdinir 300mg BID for five more days. Patient is advised close follow up with PCP and urology as scheduled. (1) Pyelonephritis Current Visit: Yes Status: Acute Assessment & Plan: -CT findings suspicious for pyelonephritis although findings could be related to recent kidney stone removal -Will continue on cefdinir for five more days, advised close f/u with pcp Code(s): N12 - TUBULO-INTERSTITIAL NEPHRITIS, NOT SPCF ACUTE OR CHRONIC (2) Leukocytosis Current Visit: Yes Status: Acute Qualifiers: Assessment & Plan: -Could be secondary to pyelonephritis vs reactive from recent surgery, see above Code(s): D72.829 - ELEVATED WHITE BLOOD CELL COUNT, UNSPECIFIED (3) Hypokalemia Current Visit: Yes Status: Acute Assessment & Plan: -Resolved Code(s): E87.6 - HYPOKALEMIA (4) UTI (urinary tract infection) Current Visit: Yes Status: Acute Assessment & Plan: - Will treat with rocephin empirically, follow culture, will continue on OP cefdinir for five more days Code(s): N39.0 - URINARY TRACT INFECTION, SITE NOT SPECIFIED (5) Abdominal pain Current Visit: No Status: Resolved Assessment & Plan: -resolved per patient Code(s): R10.9 - UNSPECIFIED ABDOMINAL PAIN I have spent > 45 minutes planning and coordinating safe discharge of this patient. - Vitals & Intake/Output Vital Signs: Vital Signs Temperature 97.0 F 02/11/23 11:58 Pulse Rate 85 02/11/23 11:58 Respiratory Rate 17 02/11/23 11:58 Blood Pressure 113/59 02/11/23 11:58 O2 Sat by Pulse Oximetry 96 02/11/23 11:58 Intake & Output: Intake & Output 02/09/23 02/10/23 02/11/23 02/12/23 11:59 11:59 11:59 11:59 Intake Total 120 5337 Output Total 500 2250 Balance -380 3087 Weight 56 kg - Lab Result Diagrams: 02/11/23 04:33 02/11/23 04:33 Lab Results-Last 24 Hrs: Lab Results-Last 24 Hours 02/11/23 02/11/23 Range/Units 04:33 04:33 WBC 10.2 (4.0-10.5) x10^3/uL RBC 4.12 (4.1-5.4) x10^6/uL Hgb 12.4 (12.0-16.0) g/dL Hct 36.3 (35-47) % MCV 88.1 (78-100) fL MCH 30.1 (26-32) pg MCHC 34.2 (32-36) g/dL RDW 13.2 (11.5-14.0) % Plt Count 168 (150-450) x10^3/uL MPV 9.9 (7.5-11.0) fL Gran % 58.6 (36.0-66.0) % Immature Gran % (Auto) 0.6 H (0.00-0.4) % Nucleat RBC Rel Count 0.0 (0.00-0.1) % Eos # (Auto) 0.39 (0-0.5) x10^3/uL Immature Gran # (Auto) 0.06 H (0.00-0.03) x10^3u/L Absolute Lymphs (auto) 2.79 (1.0-4.6) x10^3/uL Absolute Monos (auto) 0.93 (0.0-1.3) x10^3/uL Absolute Nucleated RBC 0.00 (0.00-0.01) x10^3u/L Lymphocytes % 27.4 (24.0-44.0) % Monocytes % 9.1 (0.0-12.0) % Eosinophils % 3.8 (0.00-5.0) % Basophils % 0.5 (0.0-0.4) % Absolute Granulocytes 5.95 (1.4-6.9) x10^3/uL Basophils # 0.05 (0-0.4) x10^3/uL Sodium 137 (137-145) mmol/L Potassium 3.9 (3.5-5.1) mmol/L Chloride 107 (98-107) mmol/L Carbon Dioxide 24 (22-30) mmol/L Anion Gap 10.4 (5-15) MEQ/L BUN 13 (7-17) mg/dL Creatinine 0.70 (0.52-1.04) mg/dL Estimated GFR > 60.0 ML/MIN Glucose 112 H (74-106) mg/dL Calcium 8.6 (8.4-10.2) mg/dL Total Bilirubin 0.90 (0.2-1.3) mg/dL AST 41 H (14-36) U/L ALT 43 H (0-35) U/L Alkaline Phosphatase 161 H (38-126) U/L Serum Total Protein 5.8 L (6.3-8.2) g/dL Albumin 3.3 L (3.5-5.0) g/dL Micro Results-Entire Visit: Microbiology 02/10/23 03:16 Urine Culture - Preliminary Clean Catch Midstream GRAM NEGATIVE ID AND SENSITIVITY PENDING - Radiology Exams Ordered Rad Exams-Entire Visit: Radiology Procedures Category Date Time Status ABDOMEN AND PELVIS W/0 CONTRAS [CT] Stat Exams 02/10/23 03:23 Completed Discharge Exam General Appearance: no apparent distress Neurologic Exam: alert, oriented x 3, cooperative Eye Exam: PERRL Respiratory Exam: normal breath sounds, lungs clear Cardiovascular Exam: regular rate/rhythm, normal heart sounds Gastrointestinal/Abdomen Exam: soft, normal bowel sounds Pelvic Exam: deferred Rectal Exam: deferred Skin Exam: normal color, warm, dry Final Diagnosis/Problem List - Final Discharge Diagnosis/Problem (1) Pyelonephritis Current Visit: Yes Status: Acute Code(s): N12 - TUBULO-INTERSTITIAL NEPHRITIS, NOT SPCF ACUTE OR CHRONIC (2) Leukocytosis Current Visit: Yes Status: Resolved Code(s): D72.829 - ELEVATED WHITE BLOOD CELL COUNT, UNSPECIFIED (3) Hypokalemia Current Visit: Yes Status: Resolved Code(s): E87.6 - HYPOKALEMIA (4) UTI (urinary tract infection) Current Visit: Yes Status: Acute Code(s): N39.0 - URINARY TRACT INFECTION, SITE NOT SPECIFIED (5) Abdominal pain Current Visit: No Status: Resolved Code(s): R10.9 - UNSPECIFIED ABDOMINAL PAIN Telemedicine Encounter - Telemedicine Encounter Telemedicine Encounter: The entirety of this encounter was performed via Telemedicine" - Discharge Disposition: Home, Self-Care Condition: Stable Prescriptions: New Cefdinir 300 mg PO BID 5 Days #10 cap Continue Phenazopyridine HCl 200 mg [Pyridium 200 mg] 200 mg PO TID Multivitamin/Iron/Folic Acid [Centrum Adults Tablet] 1 each PO DAILY Loratadine 10 mg [Claritin 10 mg] 10 mg PO DAILY Multivit-Min/Folic Acid/Biotin [Hair, Skin and Nails Caplet] 1 each PO DAILY Instructions: Urinary Tract Infection, Adult (DC)
[2023-02-11 13:49] VITALS: BP 187/87
== END 2023-02-11 14:43 | disposition home or self-care (01) ==
LOC: ED 02:22 → MED SURG 05:27
PROVIDERS: ADMIT Internal Medicine; ATTEND Internal Medicine
DX: N12 Tubulo-interstitial nephritis, not specified as acute or chronic (principal); D72.829 Elevated white blood cell count, unspecified; E87.6 Hypokalemia; N39.0 Urinary tract infection, site not specified; R10.9 Unspecified abdominal pain; Z79.899 Other long term (current) drug therapy; Z20.828 Contact with and (suspected) exposure to other viral communicable diseases; Z87.442 Personal history of urinary calculi
CPT/HCPCS: 36000; 36415; 74176; 80053; 81001; 84484; 85025; 87077; 87086; 87186; 96365; 96374; 99285; G0378; Q3014; J0360; J0696; J1885; A9270-GY

== ENCOUNTER 2024-04-24 06:00 | Day surgery (SDC) | payer OTHER ==
[2024-04-24 06:26] VITALS: RESP 16
[2024-04-24] MEDS ORDERED: Lactated Ringers 1,000 ML IV ONE (06:29)
[2024-04-24] MEDS: Lactated Ringers 1,000 ML IV ONE (06:35)
[2024-04-24] MEDS ORDERED: DIPRIVAN 200 MG/20 ML IV ONE ×2 (07:19→07:28)
[2024-04-24 07:53] VITALS: O2SAT 100
[2024-04-24 07:56] VITALS: BP 106/54; PULSE 70
[2024-04-24 08:01] VITALS: TEMP 97.5
--- NOTE | 2024-04-25 11:10 | OP ---
SURGERY DATE/TIME: 04/25/24 [id number] PREOPERATIVE DIAGNOSIS: Screening exam. POSTOPERATIVE DIAGNOSIS: Normal colon. PROCEDURE: Colonoscopy. SURGEON: Stu Olivares MD ANESTHESIA: Medication given by the Anesthesia department. HISTORY: The patient is a 59-year-old white female presenting now for screening colonoscopy. She was apprised of the risks of the procedure including risk of perforation, phlebitis, untoward reaction to medication, bleeding and missed lesions. The patient verbalized her understanding and desired to have the procedure performed. DESCRIPTION OF PROCEDURE AND FINDINGS: Patient was given medication by the Anesthesia department. She had continuous pulse oximetry, ECG monitoring, and intermittent blood pressure monitoring during the examination. She was placed in the left lateral decubitus position. Digital rectal examination was performed and revealed normal anal sphincter tone and no masses. The flexible Olympus colonoscope was used to intubate the rectum. A view of the colon was developed sequentially to the cecum. Upon insertion and withdrawal, including retroflexion in the rectum, no mucosal lesions were encountered. The scope was removed. The patient tolerated the procedure well and was sent back to outpatient recovery in good condition. The prep was noted to be fair to poor.
== END 2024-04-24 08:00 | disposition home or self-care (01) ==
LOC: SDC 06:00
PROVIDERS: ATTEND Family Medicine
DX: Z12.11 Encounter for screening for malignant neoplasm of colon (principal)
CPT/HCPCS: J2704